=== PATIENT | male | born 1965 | race Caucasian/White ===

== ENCOUNTER → 2016-07-10 | Outpatient (CLI) | payer OTHER | END | disposition home or self-care (01) | LOC: RADMRIMAIN 19:12 | PROVIDERS: ATTEND Nurse Practitioner Family | DX: Z53.9 Procedure and treatment not carried out, unspecified reason (principal) ==

== ENCOUNTER 2017-10-22 05:56 | Emergency (ER) | payer OTHER ==
[2017-10-22 06:02] VITALS: TEMP 98.3
[2017-10-22] MEDS ORDERED: SODIUM CHLORIDE 0.9% 500 ML IV STA (06:19)
--- NOTE | 2017-10-22 06:33 | ED ---
Abdominal Pain HPI - General Source: patient Mode of arrival: ambulatory Limitations: no limitations - History of Present Illness MD Complaint: flank pain Onset/Timin -: hour(s) Location: LLQ, L flank Radiation: none Migration to: no migration Severity: moderate Quality: dull Consistency: constant Improves With: nothing Worsens With: nothing Associated Symptoms: denies other symptoms <Vasile Teague - Last Filed: 10/22/17 06:32> <Abhi Burns - Last Filed: 10/22/17 08:15> - General Chief Complaint: Abdominal Pain Stated Complaint: back/abd pain Time Seen by Provider: 10/22/17 06:04 - Related Data Home Medications Medication Instructions Recorded Confirmed Fenofibrate (Unknown Dose) 1 tab PO HS 10/22/17 10/22/17 Lisinopril [Zestril] 10 mg PO DAILY 10/22/17 10/22/17 metFORMIN HCL [Glucophage] 500 mg PO BID 10/22/17 10/22/17 Previous Rx's Medication Instructions Recorded Ketorolac [Toradol] 10 mg PO Q6HR PRN #15 tab 10/22/17 Tamsulosin [Flomax] 0.4 mg PO DAILY #14 cap 10/22/17 Allergies Allergy/AdvReac Type Severity Reaction Status Date / Time No Known Allergies Allergy Verified 10/22/17 06:02 Review of Systems ROS Other: All systems not noted in ROS Statement are negative. Constitutional: Denies: fever, chills Respiratory: Denies: cough, dyspnea Cardiovascular: Denies: chest pain, palpitations, edema Gastrointestinal: Reports: as per HPI, abdominal pain. Denies: nausea, vomiting , diarrhea, constipation, melena, hematochezia Genitourinary: Denies: dysuria, hematuria, testicular pain, testicular mass Musculoskeletal: Denies: back pain Skin: Denies: rash Neurological: Denies: headache <Vasile Teague - Last Filed: 10/22/17 06:32> ROS Other: All systems not noted in ROS Statement are negative. <Abhi Burns - Last Filed: 10/22/17 08:15> ROS Statement: Those systems with pertinent positive or pertinent negative responses have been documented in the HPI. Past Medical History Past Medical History: No Reported History History of Any Multi-Drug Resistant Organisms: None Reported Past Surgical History: No Surgical Hx Reported Past Psychological History: No Psychological Hx Reported Smoking Status: Never smoker Past Alcohol Use History: Occasional Past Drug Use History: None Reported <ZahidaVasile - Last Filed: 10/22/17 06:32> General Exam Limitations: no limitations General appearance: alert, in no apparent distress Head exam: Present: atraumatic, normocephalic Eye exam: Present: normal appearance. Absent: scleral icterus, conjunctival injection Respiratory exam: Present: normal lung sounds bilaterally. Absent: respiratory distress, wheezes, rales, rhonchi, stridor Cardiovascular Exam: Present: regular rate, normal rhythm, normal heart sounds. Absent: systolic murmur, diastolic murmur, rubs, gallop GI/Abdominal exam: Present: soft. Absent: distended, tenderness, guarding, rebound, rigid, mass, pulsatile mass, hernia Extremities exam: Present: normal inspection, normal capillary refill. Absent: pedal edema, calf tenderness Back exam: Present: normal inspection, full ROM, CVA tenderness (L). Absent: CVA tenderness (R) Neurological exam: Present: alert Skin exam: Present: warm, dry, intact, normal color. Absent: rash <Vasile Teague - Last Filed: 10/22/17 06:32> Vital Signs 10/22/17 05:59 Temperature 98.3 F Pulse Rate 72 Respiratory 18 Rate Blood Pressure 138/89 O2 Sat by Pulse 100 Oximetry Medical Decision Making <Vasile Teague - Last Filed: 10/22/17 06:32> - Lab Data Result diagrams: 10/22/17 06:21 10/22/17 06:21 - Radiology Data Radiology results: report reviewed (Unable to view the images. Radiologist reports KUB as no acute process. Computed tomography scan showing left 7 mm proximal ureter calculi.) <Abhi Burns - Last Filed: 10/22/17 08:15> - Medical Decision Making Patient reevaluated by myself, Dr. Burns. Patient reevaluated and resting comfortably in bed. Abdomen soft and nontender. Patient and family updated on results and need for follow-up. (Abhi Burns) - Lab Data Lab Results 10/22/17 10/22/17 10/22/17 Range/Units 06:21 06:21 06:21 WBC 9.7 (3.8-10.6) k/uL RBC 4.54 (4.30-5.90) m/uL Hgb 14.7 (13.0-17.5) gm/dL Hct 42.0 (39.0-53.0) % MCV 92.6 (80.0-100.0) fL MCH 32.3 (25.0-35.0) pg MCHC 34.9 (31.0-37.0) g/dL RDW 12.4 (11.5-15.5) % Plt Count 253 (150-450) k/uL Neutrophils % 75 % Lymphocytes % 17 % Monocytes % 5 % Eosinophils % 1 % Basophils % 0 % Neutrophils # 7.3 (1.3-7.7) k/uL Lymphocytes # 1.7 (1.0-4.8) k/uL Monocytes # 0.5 (0-1.0) k/uL Eosinophils # 0.1 (0-0.7) k/uL Basophils # 0.0 (0-0.2) k/uL Sodium 136 L (137-145) mmol/L Potassium 5.0 (3.5-5.1) mmol/L Chloride 104 (98-107) mmol/L Carbon Dioxide 22 (22-30) mmol/L Anion Gap 10 mmol/L BUN 22 H (9-20) mg/dL Creatinine 1.50 H (0.66-1.25) mg/dL Est GFR (CKD-EPI)AfAm 61 (>60 ml/min/1.73 sqM) Est GFR (CKD-EPI)NonAf 53 (>60 ml/min/1.73 sqM) Glucose 168 H (74-99) mg/dL Calcium 10.3 H (8.4-10.2) mg/dL Total Bilirubin 0.5 (0.2-1.3) mg/dL AST 31 (17-59) U/L ALT 44 (21-72) U/L Alkaline Phosphatase 65 (38-126) U/L Total Protein 7.0 (6.3-8.2) g/dL Albumin 4.6 (3.5-5.0) g/dL Amylase 58 (30-110) U/L Lipase 96 (23-300) U/L Urine Color Light Yellow Urine Appearance Cloudy (Clear) Urine pH 6.5 (5.0-8.0) Ur Specific [place] 1.013 (1.001-1.035) Urine Protein Negative (Negative) Urine Glucose (UA) 3+ H (Negative) Urine Ketones Negative (Negative) Urine Blood Small H (Negative) Urine Nitrite Negative (Negative) Urine Bilirubin Negative (Negative) Urine Urobilinogen <2.0 (<2.0) mg/dL Ur Leukocyte Esterase Negative (Negative) Urine RBC 31 H (0-5) /hpf Urine WBC 2 (0-5) /hpf Urine Mucus Rare H (None) /hpf Disposition <Vasile Teague - Last Filed: 10/22/17 06:32> Is patient prescribed a controlled substance at d/c from ED?: No Time of Disposition: 08:15 <Abhi Burns - Last Filed: 10/22/17 08:15> Clinical Impression: Ureterolithiasis Disposition: HOME SELF-CARE Condition: Stable Instructions: Kidney Stones (ED) Additional Instructions: Please follow-up with primary care physician in the next couple days for recheck. Please also follow-up with urology. Return for increased pain, fevers , uncontrolled vomiting, worsening symptoms or other concerns. Prescriptions: Ketorolac [Toradol] 10 mg PO Q6HR PRN #15 tab PRN Reason: Pain Tamsulosin [Flomax] 0.4 mg PO DAILY #14 cap Referrals: Taina Johnson DO [Primary Care Provider] - 1-2 days
[2017-10-22 06:49] LABS: Basophils % (A) 0 %; Eosinophils # (A) 0.1 k/uL (0-0.7); Eosinophils % (A) 1 %; HGB 14.7 gm/dL (13.0-17.5); Lymphocytes # (A) 1.7 k/uL (1.0-4.8); Lymphocytes % (A) 17 %; MCH 32.3 pg (25.0-35.0); MCHC 34.9 g/dL (31.0-37.0); MCV 92.6 fL (80.0-100.0); Mean Platelet Volume 6.4; Monocytes # (A) 0.5 k/uL (0-1.0); Monocytes % (A) 5 %; Neutrophils # (A) 7.3 k/uL (1.3-7.7); Neutrophils % (A) 75 %; Platelet Count 253 k/uL (150-450); RBC 4.54 m/uL (4.30-5.90); RDW 12.4 % (11.5-15.5); WBC 9.7 k/uL (3.8-10.6)
--- NOTE | 2017-10-22 06:51 | XR ---
EXAM: XR Abdomen, 1 View CLINICAL HISTORY: ITS.REASON XR Reason: abdominal pain TECHNIQUE: Frontal supine view of the abdomen/pelvis. COMPARISON: No relevant prior studies available. FINDINGS: Gastrointestinal tract: Unremarkable. No dilation. Bones/joints: Unremarkable. IMPRESSION: Normal abdominal x-ray.
[2017-10-22 06:57] LABS: Appearance,Urine Cloudy (Clear); Bilirubin,Urine Negative (Negative); Blood,Urine Small (Negative); Color,Urine Light Yellow; Glucose,Urine (UA) 3+ (Negative); Ketones,Urine Negative (Negative); Leukocyte Esterase,Urine Negative (Negative); Mucus,Urine Rare /hpf; Nitrite,Urine Negative (Negative); PH, Urine 6.5 (5.0-8.0); Protein,Urine Negative (Negative); RBC,Urine 31 /hpf (0-5); Specific Gravity,Urine 1.013 (1.001-1.035); Urobilinogen,Urine <2.0 mg/dL (<2.0); WBC,Urine 2 /hpf (0-5)
[2017-10-22 07:00] LABS: Albumin 4.6 g/dL (3.5-5.0); Calcium 10.3 mg/dL (8.4-10.2); Total Bilirubin 0.5 mg/dL (0.2-1.3)
--- NOTE | 2017-10-22 08:02 | CT ---
EXAMINATION TYPE: CT abdomen pelvis wo con DATE OF EXAM: 10/22/2017 HISTORY: Left sided flank pain and difficulty urinating CT DLP: 1225.9 mGycm. Automated Exposure Control for Dose Reduction was Utilized. TECHNIQUE: CT scan of the abdomen and pelvis is performed without oral or IV contrast. COMPARISON: Same day abdominal x-ray FINDINGS: Within the limitations of a non-contrast study, the following observations are made. LUNG BASES: No significant abnormality is appreciated. LIVER/GB: Liver is diffusely low dense consistent with fatty infiltration. PANCREAS: No significant abnormality is seen. SPLEEN: No significant abnormality is seen. ADRENALS: No significant abnormality is seen. KIDNEYS: There is 4 mm calculus anteriorly lower pole level right kidney. There is no hydronephrosis or obstructing ureter calculus on the right. No intraluminal calculus in the bladder is noted. There is 7 mm calculus in the proximal left ureter coronal image 60 and axial image 86 causing mild t o moderate left-sided pyelocaliectasis and proximal hydroureter. No additional left-sided renal calcu li are seen. There is mild perinephric and proximal ureter fat stranding presumed product of obstruct ing calculus, renal infection should be excluded clinically. BOWEL: A few diverticula are seen in the sigmoid and left colon. There is no suspicious small or larg e bowel dilatation. There is normal-appearing appendix extending superiorly and medially from the cec um.. GENITAL ORGANS: Central zone calcifications are seen in normal size prostate gland. LYMPH NODES: No greater than 1cm abdominal or pelvic lymph nodes are appreciated. OSSEOUS STRUCTURES: There are bilateral pars defect L5 level. There is grade 1 anterolisthesis L5 on S1. There is moderate to advanced disc space narrowing L5-S1 level. There is moderate multilevel ante rior and lateral spurring in the visualized thoracic spine. OTHER: No significant additional abnormality is seen. IMPRESSION: 1. There is 7 mm calculus proximal left ureter causing mild to moderate left-sided hydronephrosis. Th ere is additional 4 mm nonobstructing calculus lower pole level right kidney. Neither are well seen o n x-ray earlier today. 2. Bilateral pars defects with spondylolisthesis and disc space narrowing lumbosacral junction.
[2017-10-22] MEDS ORDERED: KETOROLAC 30 MG/ML 1 ML VIAL IVP STA (08:15)
[2017-10-22 08:28] VITALS: BP 135/76; PULSE 70; RESP 16
== END 2017-10-22 08:30 | disposition home or self-care (01) ==
LOC: EC 05:56
DX: N20.1 Calculus of ureter (principal); Z79.84 Long term (current) use of oral hypoglycemic drugs; Z79.899 Other long term (current) drug therapy
CPT/HCPCS: 36415; 74018; 74176; 80053; 81001; 82150; 83690; 85025; 96361; 96374; 99284

== ENCOUNTER 2018-10-04 18:27 | Inpatient (IN) | payer BC, OTHER ==
[2018-10-04] MEDS ORDERED: SODIUM CHLORIDE 0.9% 1,000 ML IV STA (18:36)
[2018-10-04] MEDS ORDERED: ONDANSETRON 4 MG/2 ML VIAL IVP STA (18:50)
[2018-10-04] MEDS ORDERED: KETOROLAC 30 MG/ML 1 ML VIAL IVP STA (18:50)
[2018-10-04 19:08] LABS: Basophils % (A) 0 %; Eosinophils # (A) 0.1 k/uL (0-0.7); Eosinophils % (A) 1 %; HCT 35.8 % (39.0-53.0); Lymphocytes # (A) 2.2 k/uL (1.0-4.8); Lymphocytes % (A) 28 %; MCH 31.1 pg (25.0-35.0); MCHC 33.6 g/dL (31.0-37.0); MCV 92.4 fL (80.0-100.0); Mean Platelet Volume 6.8; Monocytes # (A) 0.5 k/uL (0-1.0); Monocytes % (A) 6 %; Neutrophils # (A) 4.9 k/uL (1.3-7.7); Neutrophils % (A) 63 %; Platelet Count 288 k/uL (150-450); RBC 3.87 m/uL (4.30-5.90); RDW 12.3 % (11.5-15.5); WBC 7.7 k/uL (3.8-10.6)
[2018-10-04 19:18] LABS: Albumin 4.5 g/dL (3.5-5.0); Calcium 10.1 mg/dL (8.4-10.2); Potassium 4.3 mmol/L (3.5-5.1); Total Bilirubin 0.5 mg/dL (0.2-1.3); Total Protein 7.1 g/dL (6.3-8.2)
--- NOTE | 2018-10-04 19:27 | ED ---
Abdominal Pain HPI <Vasile Teague - Last Filed: 10/04/18 22:54> - General Source: patient, RN notes reviewed Mode of arrival: ambulatory Limitations: no limitations <Laith Santiago - Last Filed: 10/04/18 23:04> - General Chief Complaint: Abdominal Pain Stated Complaint: poss kidney stones Time Seen by Provider: 10/04/18 18:35 - History of Present Illness Initial Comments: 53-year-old male presents emergency Department chief complaint left flank pain. Patient states started earlier today. Patient states he has had kidney stones in the past and states this feels very similar. Patient states she's had nausea and vomiting today he also complained that he's had decreased urine output. Denies any drinking or bowel habits no melena hematochezia denies any noticeable hematuria. Patient has fever, chills, chest pain, shortness breath. Patient has not taken anything for the pain. Patient states she was prescribed Toradol the past which helped. (Laith Santiago) - Related Data Home Medications Medication Instructions Recorded Confirmed Lisinopril [Zestril] 10 mg PO HS 10/22/17 10/04/18 Fenofibrate 160 mg PO HS 10/04/18 10/04/18 Ozempic (Unknown Dose SQ SA 10/04/18 Pravastatin Sodium 80 mg PO HS 10/04/18 10/04/18 Previous Rx's Medication Instructions Recorded Ketorolac [Toradol] 10 mg PO Q6HR PRN #15 tab 10/22/17 Allergies Allergy/AdvReac Type Severity Reaction Status Date / Time No Known Allergies Allergy Verified 10/04/18 18:47 Review of Systems ROS Other: All systems not noted in ROS Statement are negative. <Vasile Teague - Last Filed: 10/04/18 22:54> ROS Other: All systems not noted in ROS Statement are negative. <Laith Santiago - Last Filed: 10/04/18 23:04> ROS Statement: Those systems with pertinent positive or pertinent negative responses have been documented in the HPI. Past Medical History Past Medical History: No Reported History History of Any Multi-Drug Resistant Organisms: None Reported Past Surgical History: No Surgical Hx Reported Past Psychological History: No Psychological Hx Reported Smoking Status: Never smoker Past Alcohol Use History: Occasional Past Drug Use History: None Reported <Laith Santiago - Last Filed: 10/04/18 23:04> General Exam Limitations: no limitations General appearance: alert, in no apparent distress Head exam: Present: atraumatic, normocephalic, normal inspection Neck exam: Present: normal inspection, full ROM. Absent: tenderness, meni ngismus, lymphadenopathy Respiratory exam: Present: normal lung sounds bilaterally. Absent: respiratory distress, wheezes, rales, rhonchi, stridor Cardiovascular Exam: Present: regular rate, normal rhythm, normal heart sounds. Absent: systolic murmur, diastolic murmur, rubs, gallop, clicks GI/Abdominal exam: Present: soft, tenderness (Minimal left sided left flank), normal bowel sounds. Absent: distended, guarding, rebound, rigid Back exam: Present: CVA tenderness (L). Absent: CVA tenderness (R) Neurological exam: Present: alert, oriented X3, CN II-XII intact Skin exam: Present: warm, dry, intact, normal color. Absent: rash <Laith Santiago - Last Filed: 10/04/18 23:04> Course Vital Signs 10/04/18 18:32 Temperature 98.4 F Pulse Rate 72 Respiratory 18 Rate Blood Pressure 116/76 O2 Sat by Pulse 99 Oximetry Medical Decision Making - Lab Data Result diagrams: 10/04/18 18:50 10/04/18 18:50 <Vasile Teague - Last Filed: 10/04/18 22:54> - Lab Data Result diagrams: 10/04/18 18:50 10/04/18 18:50 <Laith Santiago - Last Filed: 10/04/18 23:04> - Medical Decision Making I saw this patient in conjunction with the physician assistant women's rowing coach. I performed independent history and physical exam. Agree with case management. Given the patient's elevated creatinine, will admit patient. I did attempt to reach the urologist on-call, or schedule had Dr. Ramírez listed. We phoned and he explained that he was not on-call, attempting to reach correct physician. (Vasile Teague) - Lab Data Lab Results 10/04/18 10/04/18 10/04/18 Range/Units 18:50 18:50 20:15 WBC 7.7 (3.8-10.6) k/uL RBC 3.87 L (4.30-5.90) m/uL Hgb 12.0 L (13.0-17.5) gm/dL Hct 35.8 L (39.0-53.0) % MCV 92.4 (80.0-100.0) fL MCH 31.1 (25.0-35.0) pg MCHC 33.6 (31.0-37.0) g/dL RDW 12.3 (11.5-15.5) % Plt Count 288 (150-450) k/uL Neutrophils % 63 % Lymphocytes % 28 % Monocytes % 6 % Eosinophils % 1 % Basophils % 0 % Neutrophils # 4.9 (1.3-7.7) k/uL Lymphocytes # 2.2 (1.0-4.8) k/uL Monocytes # 0.5 (0-1.0) k/uL Eosinophils # 0.1 (0-0.7) k/uL Basophils # 0.0 (0-0.2) k/uL Sodium 141 (137-145) mmol/L Potassium 4.3 (3.5-5.1) mmol/L Chloride 105 (98-107) mmol/L Carbon Dioxide 25 (22-30) mmol/L Anion Gap 11 mmol/L BUN 21 H (9-20) mg/dL Creatinine 2.14 H (0.66-1.25) mg/dL Est GFR (CKD-EPI)AfAm 40 (>60 ml/min/1.73 sqM) Est GFR (CKD-EPI)NonAf 34 (>60 ml/min/1.73 sqM) Glucose 187 H (74-99) mg/dL Calcium 10.1 (8.4-10.2) mg/dL Total Bilirubin 0.5 (0.2-1.3) mg/dL AST 27 (17-59) U/L ALT 37 (21-72) U/L Alkaline Phosphatase 51 (38-126) U/L Total Protein 7.1 (6.3-8.2) g/dL Albumin 4.5 (3.5-5.0) g/dL Amylase 49 (30-110) U/L Lipase 173 (23-300) U/L Urine Color Yellow Urine Appearance Clear (Clear) Urine pH 6.0 (5.0-8.0) Ur Specific [place] 1.025 (1.001-1.035) Urine Protein Trace H (Negative) Urine Glucose (UA) 3+ H (Negative) Urine Ketones Trace H (Negative) Urine Blood Trace H (Negative) Urine Nitrite Negative (Negative) Urine Bilirubin Negative (Negative) Urine Urobilinogen <2.0 (<2.0) mg/dL Ur Leukocyte Esterase Negative (Negative) Urine RBC 5 (0-5) /hpf Urine WBC 6 H (0-5) /hpf Ur Squamous Epith Cells <1 (0-4) /hpf Urine Mucus Rare H (None) /hpf Disposition <Vasile Teague - Last Filed: 10/04/18 22:54> <Laith Santiago - Last Filed: 10/04/18 23:04> Clinical Impression: Acute renal failure, Urethral calculus Disposition: ADMITTED IP TO THIS HOSP Condition: Fair Referrals: Taina Johnson DO [Primary Care Provider] - 1-2 days
--- NOTE | 2018-10-04 19:33 | XR ---
EXAMINATION TYPE: XR KUB DATE OF EXAM: 10/04/2018 COMPARISON: 10/22/2017 HISTORY: Flank pain TECHNIQUE: 2 views upright FINDINGS: There is no sign of intestinal obstruction or pneumoperitoneum. Fecal pattern is normal. Th ere are no pathologic calcifications over the kidneys. IMPRESSION: Nonacute abdomen. No change.
[2018-10-04 20:29] LABS: Appearance,Urine Clear (Clear); Bilirubin,Urine Negative (Negative); Blood,Urine Trace (Negative); Color,Urine Yellow; Glucose,Urine (UA) 3+ (Negative); Ketones,Urine Trace (Negative); Leukocyte Esterase,Urine Negative (Negative); Mucus,Urine Rare /hpf; Nitrite,Urine Negative (Negative); Protein,Urine Trace (Negative); RBC,Urine 5 /hpf (0-5); Specific Gravity,Urine 1.025 (1.001-1.035); Squamous Epithelial Cell,Urine <1 /hpf (0-4); Urobilinogen,Urine <2.0 mg/dL (<2.0)
--- NOTE | 2018-10-04 21:36 | CT ---
EXAMINATION TYPE: CT abdomen pelvis wo con DATE OF EXAM: 10/04/2018 COMPARISON: 10/22/2017 HISTORY: left flank pain CT DLP: 932.8 mGycm Automated exposure control for dose reduction was used. TECHNIQUE: Helical acquisition of images was performed from the lung bases through the pelvis. FINDINGS: There is interstitial density at the posterior lung bases. There is no pericardial effusion. There is no pleural effusion. There is fatty infiltration of the liver. Spleen appears normal. Stomach appears normal. Bile ducts a re not dilated. There is no pancreatic mass. Gallbladder appears normal. There is no adrenal mass. There is 7 mm calculus interpolar right kidney. There is moderate left-sided hydronephrosis and 8 mm calculus proximal left ureter. There is left-sided perinephric edema. There is no retroperitoneal erick nopathy. Bladder distends smoothly. There is no inguinal hernia. There is no free fluid in the pelvis. There i s no mesenteric edema. There is no ascites or free air. There is L5 spondylolysis. There are second-degree L5-S1 spondylolisthesis. Bony pelvis is intact. Th ere is minimal prosthetic calcification. There is no evidence of a bowel obstruction. Appendix is not seen. There is no sign of appendicitis. IMPRESSION: OBSTRUCTING CALCULUS PROXIMAL LEFT URETER WITH MODERATE HYDRONEPHROSIS AND PERINEPHRIC EDEMA. NONOBSTRUCTING CALCULUS INTERPOLAR RIGHT KIDNEY. Fatty infiltration of the liver. Left renal obstruction similar to old CT scan. It is not clear if this is the same calculus. Right renal calculus increased in size compared to old exam.
[2018-10-04] MEDS ORDERED: NALOXONE 0.4 MG/ML 1 ML VIAL IV PRN (23:04)
[2018-10-04] MEDS ORDERED: HYDROmorphone 0.5 MG/0.5 ML SYRINGE IVP PRN (23:04)
[2018-10-04] MEDS ORDERED: HYDROmorphone 1 MG/ML 1 ML SYRINGE IVP PRN (23:04)
[2018-10-04] MEDS ORDERED: ONDANSETRON 4 MG/2 ML VIAL IVP PRN (23:04)
[2018-10-04] MEDS: SODIUM CHLORIDE 0.9% 1,000 ML IV SCH (23:21)
--- NOTE | 2018-10-05 10:23 | CONS ---
CONSULTATION REASON FOR CONSULT: Renal failure. HISTORY OF PRESENT ILLNESS: The patient is a 53-year-old male with a prior history of nephrolithiasis, was admitted to the hospital with severe left-sided flank pain radiating to the front. He did not have any significant urinary symptoms. The patient states that his creatinine was elevated as outpatient and recently his metformin was discontinued. He is not aware of the exact levels. Serum creatinine on this admission was 2.14 mg/dL. Review of previous labs shows a creatinine of 1.4 on 06/09/2018 and 1.2 on 03/04/2018. The patient denies use of any nonsteroidal anti-inflammatory agents prior to admission. He had been getting Toradol while he was here and he is maintained on Zestril as outpatient. CAT scan done on admission shows nonobstructive calculus in the right kidney and obstructive calculus in the left ureter with moderate hydronephrosis and perinephric edema. There is a 7 mm calculus noted in the right kidney. The patient currently feels well. He denies any urinary symptoms. His pain is controlled. He is maintained on IV fluids. PAST MEDICAL HISTORY: Hypertension, type 2 diabetes. PAST SURGICAL HISTORY: None. SOCIAL HISTORY: Negative for smoking, drug abuse or alcohol abuse. MEDICATIONS: Medications prior to admission included Zestril, pravastatin, fenofibrate, Ozempic. ALLERGIES: None. REVIEW OF SYSTEMS: As per HPI. Other systems negative. PHYSICAL EXAMINATION: On examination, patient is comfortable, awake, alert, oriented x3, not in any acute distress. Blood pressure was 114/71, heart rate 57 per minute. He is afebrile. EXAMINATION OF THE HEART: S1 and S2. EXAMINATION OF THE LUNGS: Bilateral breath sounds are heard. Abdomen is soft, nontender. Examination of lower extremities shows no significant edema. DOUBLE CUT OFF SAW OPERATOR exam is grossly intact. LABS: Labs show sodium 141, potassium 4.3, BUN 21, serum creatinine 2.14, hemoglobin 12.0. UA shows 3+ glucose, blood trace, WBC 6 and there is trace protein. ASSESSMENT: 1. Acute kidney injury. Prerenal as well as an element of obstructive uropathy with left hydronephrosis noted on CAT scan with a ureteral stone. Currently nonoliguric. Continue with the IV hydration. Repeat labs today and continue to hold off on the MORELIA inhibitors and avoid Toradol and all kinds of nonsteroidal anti- inflammatory agents. 2. Rule out chronic kidney disease. Previous creatinine was 1.2 and 1.4 mg/dL in February of 2018 and June of 2018. The etiology is likely diabetic nephropathy versus nephrosclerosis. We will need to repeat another urinalysis down the road. 3. Left hydronephrosis with left ureteral stone. 4. Hypertension. Blood pressure currently controlled. Continue off of MORELIA inhibitors for now. 5. Dyslipidemia, maintained on fenofibrate and statins. PLAN: Continue IV fluids. Repeat labs in a.m. Hold off on MORELIA inhibitors. Avoid Toradol and all nonsteroidal anti-inflammatory agents. Consult Urology. Thank you for this consultation. We will continue to follow the patient with you during his hospitalization. MMODL / IJN: [id number] /
[2018-10-05 12:24] VITALS: BP 123/76; PULSE 54; RESP 16; TEMP 97.9
--- NOTE | 2018-10-05 16:43 | P.GSCN ---
History of Present Illness Consult date: 10/05/18 History of present illness: The patient is a pleasant 53-year-old gentleman who 24 hours ago developed significant left-sided flank pain. He was known to have kidney stones and a year ago had a left ureter serious left ureteral colic. He never passed a stone that he can recall. He is told that point in time he had 2 stones up. He presented yesterday and was found to have a 7 mm proximal ureteral stone on the left side. He is admitted for IV fluids and pain control. The pain is better by the time I'm seeing the patient this afternoon. The only other stone that he had was the ureter go. He states that he did not pass it. He has not had any x-rays in the in between. He will get occasional back pain on the left side. A CAT scan done today showed the 7 mm proximal ureteral stone and a 5-6 mm right renal pelvic stone. This is very similar to last year. The amount of hydronephrosis on the left side is moderate. There is no family history of stones. There is no history urine infection. He is not nauseated. There is no gross hematuria. There's no fever or chills. Past Medical History Past Medical History: No Reported History, Diabetes Mellitus, Hyperlipidemia, Hypertension Additional Past Medical History / Comment(s): kidney stones History of Any Multi-Drug Resistant Organisms: None Reported Past Surgical History: No Surgical Hx Reported Past Psychological History: No Psychological Hx Reported Smoking Status: Never smoker Past Alcohol Use History: Occasional Past Drug Use History: None Reported - Past Family History Mother Family Medical History: No Reported History Medications and Allergies Home Medications Medication Instructions Recorded Confirmed Type Ketorolac [Toradol] 10 mg PO Q6HR PRN #15 tab 10/22/17 10/04/18 Rx Lisinopril [Zestril] 10 mg PO HS 10/22/17 10/04/18 History Fenofibrate 160 mg PO HS 10/04/18 10/04/18 History Ozempic (Unknown Dose SQ SA 10/04/18 History Pravastatin Sodium 80 mg PO HS 10/04/18 10/04/18 History Allergies Allergy/AdvReac Type Severity Reaction Status Date / Time No Known Allergies Allergy Verified 10/04/18 18:47 Surgical - Exam Vital Signs Temp Pulse Resp BP Pulse Ox 98.4 F 72 18 116/76 99 07/02/19 18:32 10/04/18 18:32 10/04/18 18:32 10/04/18 18:32 10/04/18 18:32 - General well developed, well nourished, no distress - Eyes PERRL - ENT no hearing loss - Neck no masses - Respiratory normal expansion, normal respiratory effort - Cardiovascular Rhythm: regular - Abdomen Abdomen: soft, non tender - Integumentary no rash, no growths - Neurologic normal coordination, normal sensation - Musculoskeletal normal gait, normal posture - Psychiatric oriented to time, oriented to person, oriented to place, speech is normal, memory intact Results - Labs 10/04/18 18:50 10/04/18 18:50 Abnormal Lab Results - Last 24 Hours (Table) 10/04/18 10/04/18 10/04/18 Range/Units 18:50 18:50 20:15 RBC 3.87 L (4.30-5.90) m/uL Hgb 12.0 L (13.0-17.5) gm/dL Hct 35.8 L (39.0-53.0) % BUN 21 H (9-20) mg/dL Creatinine 2.14 H (0.66-1.25) mg/dL Glucose 187 H (74-99) mg/dL Urine Protein Trace H (Negative) Urine Glucose (UA) 3+ H (Negative) Urine Ketones Trace H (Negative) Urine Blood Trace H (Negative) Urine WBC 6 H (0-5) /hpf Urine Mucus Rare H (None) /hpf Diabetes panel 10/04/18 Range/Units 18:50 Sodium 141 (137-145) mmol/L Potassium 4.3 (3.5-5.1) mmol/L Chloride 105 (98-107) mmol/L Carbon Dioxide 25 (22-30) mmol/L BUN 21 H (9-20) mg/dL Creatinine 2.14 H (0.66-1.25) mg/dL Glucose 187 H (74-99) mg/dL Calcium 10.1 (8.4-10.2) mg/dL AST 27 (17-59) U/L ALT 37 (21-72) U/L Alkaline Phosphatase 51 (38-126) U/L Total Protein 7.1 (6.3-8.2) g/dL Albumin 4.5 (3.5-5.0) g/dL Calcium panel 10/04/18 Range/Units 18:50 Calcium 10.1 (8.4-10.2) mg/dL Albumin 4.5 (3.5-5.0) g/dL Pituitary panel 10/04/18 Range/Units 18:50 Sodium 141 (137-145) mmol/L Potassium 4.3 (3.5-5.1) mmol/L Chloride 105 (98-107) mmol/L Carbon Dioxide 25 (22-30) mmol/L BUN 21 H (9-20) mg/dL Creatinine 2.14 H (0.66-1.25) mg/dL Glucose 187 H (74-99) mg/dL Calcium 10.1 (8.4-10.2) mg/dL Adrenal panel 10/04/18 Range/Units 18:50 Sodium 141 (137-145) mmol/L Potassium 4.3 (3.5-5.1) mmol/L Chloride 105 (98-107) mmol/L Carbon Dioxide 25 (22-30) mmol/L BUN 21 H (9-20) mg/dL Creatinine 2.14 H (0.66-1.25) mg/dL Glucose 187 H (74-99) mg/dL Calcium 10.1 (8.4-10.2) mg/dL Total Bilirubin 0.5 (0.2-1.3) mg/dL AST 27 (17-59) U/L ALT 37 (21-72) U/L Alkaline Phosphatase 51 (38-126) U/L Total Protein 7.1 (6.3-8.2) g/dL Albumin 4.5 (3.5-5.0) g/dL - Imaging Abdominal x-ray: report reviewed, image reviewed CT scan - abdomen: report reviewed, image reviewed CT scan - pelvis: report reviewed, image reviewed Assessment and Plan Assessment: Impression: Left ureteral calculus with colic. Right renal stone. Recommendations: The patient is comfortable. We discussed the pros and cons of surgical intervention. He would like to try to pass this if possible. He sh ould go home with a prescription of Flomax and pain medicine. I would like to see him in the office again in a week. We did discuss shockwave lithotripsy and ureteroscopic manipulation if he does not pass it. Given that he has had this stone with intermittent colic over the last year I think good be reasonable to do something if he does not get rid of it over the next week or so.
[2018-10-05] MEDS: SODIUM CHLORIDE 0.9% 1,000 ML IV SCH (17:55)
--- NOTE | 2018-10-06 08:43 | HP ---
HISTORY AND PHYSICAL HISTORY AND PHYSICAL/DISCHARGE SUMMARY: This is a combination history and physical/discharge summary. CHIEF COMPLAINTS: Renal failure and as well as abdominal pain. HISTORY OF PRESENT ILLNESS: This 53-year-old gentleman with a past medical history of multiple medical problems including diabetes, hypertension, hyperlipidemia, being followed by Dr. Johnson in the outpatient setting is complaining of abdominal pain which is felt status left flank pain. The patient also had kidney stones in the past. The patient had some nausea. Patient reported some diminished urine output. Patient came to [facility] and admitted for further evaluation and treatment. The creatinine was found to be elevated to 2.14. The UA was noted and the patient also had abdomen/pelvis CAT scan which showed obstructing calculus, proximal left ureter with moderate hydronephrosis and perinephric edema on the left side and nonobstructing calculus on the right kidney also noted. The patient was evaluated by nephrology and Neurology, who recommended outpatient followups, so the patient being discharged in a stable condition with guarded prognosis at this time. Patient apparently would like to try to pass by itself if possible. Flomax has been given. There is no history of fever, rigors or chills. PAST MEDICAL HISTORY: Diabetes, hypertension, hyperlipidemia, kidney stones. MEDICATIONS: Home medications are reviewed and include: 2. Zestril 160 mg daily. 3. Fenofibrate 160 mg daily. 4. Tylenol p.r.n. ALLERGIES: None. FAMILY HISTORY: No history of heart disease or strokes in the family. SOCIAL HISTORY: No history of smoking. No history of alcohol. REVIEW OF SYSTEMS: ENT: No diminished vision. No diminished hearing. CARDIOVASCULAR: No angina of palpitations. RESPIRATIONS: As mentioned earlier. GI: As mentioned earlier. as mentioned earlier. NERVOUS SYSTEM: No numbness or weakness. ALLERGY/IMMUNOLOGY: No asthma or hayfever. MUSCULOSKELETAL as mentioned earlier. HEMATOLOGY/ONCOLOGY: No history of anemia. ENDOCRINE: No history of diabetes or hypothyroidism. CONSTITUTIONAL: As mentioned earlier. DERMATOLOGY: Negative. RHEUMATOLOGY: Negative. PSYCHIATRY: As mentioned earlier. PHYSICAL EXAMINATION: The patient is alert and oriented x3. Pulse is 54, blood pressure 140/70, respiration 18, temperature 97.7, pulse ox 98% on room air. HEENT: Conjunctivae normal. NECK: No jugular venous distention. CARDIOVASCULAR: S1, S2 muffled. RESPIRATORY: Breath sounds diminished in the bases. No rhonchi. No crackles. ABDOMEN: Soft, nontender. No mass palpable. LEGS: No edema. No swelling. NERVOUS SYSTEM as mentioned earlier. Moves all four limbs. No focal deficits. LYMPHATICS: No lymph nodes palpable in the neck, axillae or groin. SKIN: No ulcer, no rashes and no bleeding. JOINTS: No active deforming arthropathy. LABS: WBC 7.7, hemoglobin is 12, sodium 140, potassium 4.3, creatinine is 2.14. ASSESSMENT: 1. Possible acute renal failure with prerenal renal failure as well as obstructive uropathy. 2. Obstructing calculus proximal left ureter with moderate hydronephrosis and perinephric edema. 3. Anemia, normocytic anemia of chronic disease, possibly. 4. Hyperlipidemia. 5. Hypertension. 6. Diabetes mellitus type 2. 7. History of nephrolithiasis. RECOMMENDATIONS AND DISCUSSION: In this 53-year-old gentleman who presented with multiple medical issues, at this time, I recommend to continue current medications. As mentioned earlier, the patient is willing to try to pass urine by himself and follow up closely with Urology and Nephrology. DISCHARGE ADVICE AND MEDICATIONS: The patient being discharged in stable condition with guarded prognosis with the following advice and medications: 1. Follow up with Dr. Johnson in 2-3 days. 2. Follow up with Dr. Berger and Dr. Ramírez/Urology as advised. DISCHARGE MEDICATIONS: 1. Fenofibrate 160 mg q.h.s. 2. Pravastatin 80 mg q.h.s. 3. Zestril 10 mg q.h.s. 4. Flomax 0.4 daily. 5. [place] 5 mg q.6h q.4h p.r.n. 6. Tylenol p.r.n. MMODL / IJN: [id number] / MTDD
== END 2018-10-05 18:41 | disposition home or self-care (01) | DRG 684 ==
LOC: EC 18:27 → 3NMEDONC 10-05 00:21
PROVIDERS: ADMIT Hospitalist; ATTEND Hospitalist
DX: N17.9 Acute kidney failure, unspecified (principal); D63.8 Anemia in other chronic diseases classified elsewhere; E11.9 Type 2 diabetes mellitus without complications; E78.5 Hyperlipidemia, unspecified; I10 Essential (primary) hypertension; N13.2 Hydronephrosis with renal and ureteral calculous obstruction; N21.1 Calculus in urethra; Z87.442 Personal history of urinary calculi; Z79.899 Other long term (current) drug therapy
CPT/HCPCS: 36415; 74018; 74176; 80053; 81001; 82150; 83690; 85025; 96361; 96374; 96375; 99285

== ENCOUNTER → 2018-10-20 | Outpatient (CLI) | payer BC ==
--- NOTE | 2018-10-20 13:04 | XR ---
KUB HISTORY: An 28.1, N 20.0 Frontal KUB and 2 images correlated prior exam and CT and KUB 10/04/2017 There is no significant interval change. Calcification at the left L4 transverse process is again not ed measuring approximately 8 mm in size. No other significant interval change. Calcification seen in the region of the right renal pelvis on prior CT may migrated into the right ureter at the level of t he right L2 transverse process measuring approximately 6 mm. IMPRESSION: Left ureteral calculus. Possible interval migration of right renal calculus into the righ t ureter
== END | disposition home or self-care (01) ==
LOC: RADXRMAIN 10:31
PROVIDERS: ATTEND Urology
DX: N20.1 Calculus of ureter (principal)
CPT/HCPCS: 74018

== ENCOUNTER → 2019-02-01 | Day surgery (SDC) | payer BC ==
[2019-01-30 15:53] VITALS: BMI 33.5
--- NOTE | 2019-01-31 21:11 | P.GSHP ---
History of Present Illness H&P Date: 01/31/19 53 yo male was originally seen in october for a 7 mm mid left ureteral stone and a 5 mm right renal stone He chose eswl left The stone fractured into two pieces but didnt pass By a recent kub the stone appears to have remained in the mid ureter HE wants these removed He thus comes for ureterosco and laser lithotripsy left THe kub also suggests that the renal stone on the right may have also dropped into the mid ureter He will also undergo a right retrograde pyelogram wth possible right ureteroscopy and laser lithotripsy He may require stents in either ureter He understands this. - Constitutional Constitutional: Denies chills, Denies fever - EENT Eyes: denies blurred vision, denies pain Ears, nose, mouth and throat: Denies headache, Denies sore throat - Cardiovascular Cardiovascular: Denies chest pain, Denies shortness of breath - Respiratory Respiratory: Denies cough, Denies 7 - Gastrointestinal Gastrointestinal: Denies abdominal pain, Denies diarrhea, Denies nausea, Denies vomiting - Genitourinary (Female) Genitourinary: Denies dysuria, Denies hematuria - Genitourinary (Male) Genitourinary: Denies dysuria, Denies hematuria - Musculoskeletal Musculoskeletal: Denies myalgias - Integumentary Integumentary: Denies pruritus, Denies rash - Neurological Neurological: Denies numbness, Denies weakness - Psychiatric Psychiatric: Denies anxiety, Denies depression - Endocrine Endocrine: Denies fatigue, Denies weight change Past Medical History Past Medical History: Diabetes Mellitus, Hyperlipidemia, Hypertension Additional Past Medical History / Comment(s): kidney stones, taken off metformin and ran out of ozempic-states watching diet. History of Any Multi-Drug Resistant Organisms: None Reported Past Surgical History: No Surgical Hx Reported Additional Past Surgical History / Comment(s): LITHOTRIPSY Past Anesthesia/Blood Transfusion Reactions: No Reported Reaction Past Psychological History: No Psychological Hx Reported Smoking Status: Never smoker Past Alcohol Use History: Occasional Past Drug Use History: None Reported - Past Family History Mother Family Medical History: No Reported History Father Family Medical History: Cancer Additional Family Medical History / Comment(s): kidney cancer Medications and Allergies Home Medications Medication Instructions Recorded Confirmed Type Lisinopril [Zestril] 10 mg PO HS 10/22/17 01/30/19 History Fenofibrate 160 mg PO HS 10/04/18 01/30/19 History Pravastatin Sodium 80 mg PO HS 10/04/18 01/30/19 History Semaglutide [Ozempic] 0.25 mg SQ WEEKLY 01/30/19 01/30/19 History Tamsulosin HCl [Flomax] 0.4 mg PO HS 01/30/19 01/30/19 History Allergies Allergy/AdvReac Type Severity Reaction Status Date / Time No Known Allergies Allergy Verified 01/30/19 15:28 Surgical - Exam - General well developed, well nourished, no distress - Eyes PERRL - ENT no hearing loss - Neck trachea midline - Respiratory normal expansion, normal respiratory effort - Cardiovascular Rhythm: regular - Abdomen Abdomen: soft, non tender - Genitourinary normal penis with no external lesions, testicles present - Integumentary no rash, no growths - Neurologic normal coordination, normal sensation - Musculoskeletal normal gait, normal posture - Psychiatric oriented to time, oriented to person, oriented to place, speech is normal, memory intact Assessment and Plan Assessment: Impression: Left ureteral calculi and possible right ureteral calculous Plan: Cysto with left ureteroscopy and laser lithotripsy, right retrograde pyelogram with possible ureteroscopy and laser lithotripsy
[~2019-02-01] MED LIST: DEXAMETHASONE SOD PHOSPHATE 10 MG/ML 1 ML VIAL IV ONE; HYDROmorphone (PF) 1 MG/ML ONE; HYDROmorphone 0.5 MG/0.5 ML SYRINGE IVP PRN; INSULIN ASPART (NovoLOG) 100 UNIT/ML VIAL SQ ONE; IOHEXOL 350 MG/ML 50 ML in EMPTY BAG 1 BAG IRRIGATION ONE; LACTATED RINGERS 1,000 ML IV ONE; LACTATED RINGERS 1,000 ML IV SCH; LIDOCAINE 1% 20 ML VIAL (10MG/ML) FOR IV START INTRADERMA PRN; LIDOCAINE 1% INJ 10MG/ML (20 ML MDV) ONE; MIDAZOLAM 2 MG/2 ML VIAL ONE; ONDANSETRON 4 MG/2 ML VIAL IVP ONE; PHENYLEPHRINE-0.9% NACL SYG 1 MG/10 ML SYRINGE ONE; PROPOFOL 10 MG/ML 20 ML VIAL IV ONE; SCOPOLAMINE 1.5MG/72HR PATCH TRANSDERM ONE; TAMSULOSIN 0.4 MG CAP.ER.24H PO ONE; TAMSULOSIN 0.4 MG CAP.ER.24H PO STA; ePHEDrine SULFATE/0.9% NACL/PF 50 MG/5 ML SYRINGE IV ONE; fentaNYL (PF) 50 MCG/ML 2 ML AMP ONE
--- NOTE | 2019-02-01 09:40 | XR ---
EXAMINATION TYPE: XR KUB DATE OF EXAM: 02/01/2019 COMPARISON: 10/20/2018 HISTORY: Post lithotripsy TECHNIQUE: One view abdominal series FINDINGS: The osseous structures are intact. The bowel gas pattern is nonspecific. Hypertrophic changes of the acetabulum can be associated with femoral acetabular impingement. The previous noted calcification overlying the left transverse process of L3 is now seen overlying th e upper margin of the left transverse process of L4. Appears be fragmented into 2 pieces measuring di ameter of approximately 3 mm. IMPRESSION: 1. There is fragmentation of the mid left ureteral calculus into 2 pieces measuring a diameter of 3 m m or less. There is also distal migration of the 2 calcifications by approximately one vertebral segm ent length.
[2019-02-01 10:24] LABS: Glucose,Whole Blood 232 mg/dL (75-99)
--- NOTE | 2019-02-01 12:35 | P.OP ---
Date of Procedure: 02/01/19 Preoperative Diagnosis: Left ureteral calculus Postoperative Diagnosis: Bilateral ureteral calculi Procedure(s) Performed: Cystoscopy, right retrograde pyelogram, right ureteroscopy with laser lithotripsy and stone basketing, 6 x 26 stent, left ureteroscopy laser lithotripsy, 6 x 26 stent Anesthesia: BUTCH Surgeon: Jules Ramírez Estimated Blood Loss (ml): 10 Pathology: other (Stone) Condition: stable Disposition: PACU Indications for Procedure: The patient is 53. He had a large upper ureteral stone on the left. He underwent shockwave lithotripsy and the stone broke into 2 and lodged in the mid ureter. It is not been able to pass and has intermittent colic. I did a KUB in preparation in that there appears to be that the right renal stone was passed in the ureter. He comes for cystoscopy right retrograde pyelogram left ureteroscopy laser lithotripsy and possible right ureteroscopy and laser lithotripsy Description of Procedure: Patient brought the operating suite given general anesthesia placed lithotomy position with a sterile prep and drape. Cystoscopy Foroblique lens and 22- Chinese sheath identifies normal urethra. The prostate is not obstructing. Both ureteral orifices are normal. A right retrograde pyelogram with an 8 cone-tip catheters identified and there is a mid ureteral stone about 6-7 mm. Right ureteral wire is passed up into the kidney. Over the wires passed a 24-16-Ahsboy reentry sheath. The inner sheath is removed. Through the 13- Chinese sheath the stone was identified and fractured into tiny pieces with the 200 laser probe and 4 a lot of energy. The larger fragments are basketed. I then pass and 035 wire through the sheath. The sheath is removed. The wires backloaded on the cystoscope. Over the wires passed a 6 x 26 double-J catheter that coils in the kidney and the bladder I then pass the 035 wire through the left ureter. Over the wire and 85-00-Xiieuo reentry sheath was passed into the ureter. The inner sheath is removed. I then pass a flexible ureteroscope up to the stone. The most distal stone was fractured with the laser lithotripsy using 4 W of energy. The stone fragments are basketed. I then go to the proximal stone migrated into the kidney but I'm able to break it into smaller fragments and basket them. At the end of the procedure the ureteroscope was removed. An 035 wires passed up into the kidney. The reentry sheath is removed. The wires backloaded on the cysto scope. Over the wires 6 x 26 double-J catheters passed the coils in the renal pelvis and the bladder is drained. The patient's awake and returned recovery in good condition. The stone fragments are sent to pathology. The patient we discharged home upon recovery.
[2019-02-01 12:36] VITALS: TEMP 96.8
--- NOTE | 2019-02-01 13:28 | FL ---
EXAMINATION TYPE: FL urography retrograde DATE OF EXAM: 02/01/2019 COMPARISON: NONE HISTORY: Fluoroscopy TECHNIQUE: Fluoroscopy. FINDINGS: Fluoroscopic guidance was provided during procedure of 1 minute and 49 seconds IMPRESSION: As Above.
[2019-02-01 13:45] VITALS: RESP 18
[2019-02-01 13:48] LABS: Glucose,Whole Blood 222 mg/dL (75-99)
[2019-02-01 14:54] LABS: Glucose,Whole Blood 240 mg/dL (75-99)
[2019-02-01 16:53] LABS: Glucose,Whole Blood 223 mg/dL (75-99)
[2019-02-01 17:39] VITALS: BP 134/80; PULSE 70
== END | disposition home or self-care (01) ==
LOC: OR 08:56
PROVIDERS: ATTEND Urology
DX: N20.1 Calculus of ureter (principal); E11.9 Type 2 diabetes mellitus without complications; E78.5 Hyperlipidemia, unspecified; I10 Essential (primary) hypertension; Z87.442 Personal history of urinary calculi; Z98.890 Other specified postprocedural states; Z79.899 Other long term (current) drug therapy; Z80.51 Family history of malignant neoplasm of kidney
CPT/HCPCS: 52356; 82365; 74420; 74018; C2625; C1758; C1769; J2250; J1100; J0690; J2405; J2001; J3010; J1170; J2370; J2704; Q9967

== ENCOUNTER 2020-12-02 15:10 | Inpatient (IN) | payer BC ==
[2020-12-02 16:34] LABS: Appearance,Urine Clear (Clear); Bilirubin,Urine Negative (Negative); Blood,Urine Negative (Negative); Color,Urine Yellow; Glucose,Urine (UA) 4+ (Negative); Ketones,Urine Negative (Negative); Leukocyte Esterase,Urine Negative (Negative); Nitrite,Urine Negative (Negative); Protein,Urine Negative (Negative); Specific Gravity,Urine 1.019 (1.001-1.035); Urobilinogen,Urine <2.0 mg/dL (<2.0)
[2020-12-02 16:35] LABS: Basophils % (A) 1 %; Eosinophils # (A) 0.1 k/uL (0-0.7); Eosinophils % (A) 1 %; HCT 46.3 % (39.0-53.0); HGB 16.3 gm/dL (13.0-17.5); Lymphocytes # (A) 2.1 k/uL (1.0-4.8); Lymphocytes % (A) 34 %; MCH 33.6 pg (25.0-35.0); MCHC 35.3 g/dL (31.0-37.0); MCV 95.2 fL (80.0-100.0); Mean Platelet Volume 7.5; Monocytes # (A) 0.4 k/uL (0-1.0); Monocytes % (A) 7 %; Neutrophils # (A) 3.5 k/uL (1.3-7.7); Neutrophils % (A) 56 %; Platelet Count 248 k/uL (150-450); RBC 4.86 m/uL (4.30-5.90); RDW 13.1 % (11.5-15.5); WBC 6.3 k/uL (3.8-10.6)
[2020-12-02 16:44] LABS: INR 0.9 (<1.2); Partial Thromboplastin Time 22.3 sec (22.0-30.0); Prothrombin Time 10.2 sec (9.0-12.0)
[2020-12-02 16:53] LABS: Calcium 10.8 mg/dL (8.4-10.2); Potassium 4.4 mmol/L (3.5-5.1); Total Bilirubin 0.5 mg/dL (0.2-1.3); Total Protein 7.7 g/dL (6.3-8.2)
--- NOTE | 2020-12-02 17:48 | CT ---
EXAMINATION TYPE: CT brain wo con for TPA DATE OF EXAM: 12/02/2020 COMPARISON: None HISTORY: Dizziness with slurred speech x [address] DLP: 1102.8 mGycm Automated exposure control for dose reduction was used. Images obtained of the brain without contrast. Ventricles have normal size. There is no mass effect. There is some hypodensity in the right posterio r frontal lobe adjacent to the cerebral falx and the frontal horn right lateral ventricle and consist ent with an acute infarct. This measures 3.5 x 1.5 cm. There is no sign of intracranial hemorrhage. S alejandrina turcica appears normal. There is no evidence of posterior fossa mass. Calvarium is intact. There is normal aeration of the mastoid sinuses. IMPRESSION: Cortical hypodensity right posterior frontal lobe consistent with acute infarct.
--- NOTE | 2020-12-02 17:52 | XR ---
EXAMINATION TYPE: XR chest 2V DATE OF EXAM: 12/02/2020 COMPARISON: NONE HISTORY: Weakness TECHNIQUE: 2 views FINDINGS: Heart and mediastinum are normal. Lungs are clear. Diaphragm is normal. Bony thorax is inta ct. There are calcified granulomata at the right pulmonary hilum. IMPRESSION: No active cardiopulmonary disease. Normal heart.
--- NOTE | 2020-12-02 18:26 | CT ---
EXAMINATION TYPE: CT angio head neck DATE OF EXAM: 12/02/2020 COMPARISON: None HISTORY: Dizziness with slurred speech x [address] DLP: 678.5 mGycm Automated exposure control for dose reduction was used. CONTRAST: Performed with IV Contrast, patient injected with 65 mL of Isovue 370. There are 3-D post processed images. There is normal branching pattern of the great vessels on the aortic arch. There is bilateral arteria l flow in the subclavian arteries. There is arterial flow in the common internal and external carotid arteries bilaterally. There is arterial flow in both vertebral arteries. There is arterial flow in t he vertebrobasilar artery system. There is no evidence of carotid or vertebral artery aneurysm or dis section. There is wide patency of the carotid artery bifurcations. There is arterial flow in the anterior middle and posterior cerebral arteries. There is no mass effec t. I see no evidence of intracranial aneurysm or neovascularity. There is arterial flow in both dista l internal carotid arteries. There is arterial flow in the distal left anterior cerebral artery. Ther e is some diminished flow seen in the distal right anterior cerebral artery. There is hypodensity in the cortex of the medial right posterior frontal lobe adjacent to the cerebral falx and consistent wi th an acute infarct. IMPRESSION: Diminished distal arterial flow in the right anterior cerebral artery and corresponding to area of ap parent acute infarct right posterior frontal lobe. Normal CT angiogram of the neck.
[2020-12-02] MEDS ORDERED: ASPIRIN 325 MG TAB PO STA (18:48)
--- NOTE | 2020-12-02 19:10 | ED ---
General Adult HPI - General Chief complaint: Neuro Symptoms/Deficit Stated complaint: slurred speach, weakness, sent from Dr Time Seen by Provider: 12/02/20 15:33 Source: patient, RN notes reviewed, old records reviewed Mode of arrival: ambulatory - History of Present Illness Initial comments: Patient is a 55-year-old male with past medical history remarkable for hypertension, hyperlipidemia, diabetes who presents emergency Department for strokelike symptoms. Symptoms started last Wednesday and have not worsened regarding better. He is a very slight facial droop of the left mild with dysarthria. Patient's daughter is here to corroborate the story. Symptoms have not improved. The initially presented to his PCP who obtained blood work. He is told today to come to the emergency department for CT head. He is not on blood thinners. Has no history of strokes. Patient's only other complaint is mild lightheadedness which improved when he rests his head. He states it is initially bad when he stands up immediately but it resolves after a few moments. States he believes it is likely to him standing from a sitting position. Denies any syncopal episodes. Denies any vertiginous symptoms. He is still able to ambulate without difficulty. Denies any other acute complaints including chest pain, shortness breath, weakness, numbness, abdominal pain, nausea, vomiting. Denies any fevers, chills, sick contacts. His no other acute complaints at this time. Patient presents over concern for possible stroke due to his symptoms. Last known well was last week. He is not a TPA candidate. - Related Data Home Medications Medication Instructions Recorded Confirmed lisinopriL [Zestril] 10 mg PO HS 10/22/17 12/02/20 Fenofibrate 160 mg PO HS 10/04/18 12/02/20 Pravastatin Sodium 80 mg PO HS 10/04/18 12/02/20 Insulin Glargine [Lantus Vial] 40 unit SQ BID 12/02/20 12/02/20 metFORMIN HCL ER [Glucophage XR] 500 mg PO BID 12/02/20 12/02/20 Allergies Allergy/AdvReac Type Severity Reaction Status Date / Time No Known Allergies Allergy Verified 12/02/20 16:08 Review of Systems ROS Statement: Those systems with pertinent positive or pertinent negative responses have been documented in the HPI. Review of Systems: CONST: Denies fever EYES: Denies blurry vision ENT: Endorses facial droop, dysarthria C/V: Denies Chest pain RESP: Denies shortness of breath GI: Denies abdominal pain : Denies dysuria SKIN: Denies rash. MSK: Denies joint pain. NEURO: Denies headache ROS Other: All systems not noted in ROS Statement are negative. Past Medical History Past Medical History: Diabetes Mellitus, Hyperlipidemia, Hypertension Additional Past Medical History / Comment(s): kidney stones, taken off metformin and ran out of ozempic-states watching diet. History of Any Multi-Drug Resistant Organisms: None Reported Past Surgical History: No Surgical Hx Reported Additional Past Surgical History / Comment(s): LITHOTRIPSY Past Anesthesia/Blood Transfusion Reactions: No Reported Reaction Past Psychological History: No Psychological Hx Reported Smoking Status: Never smoker Past Alcohol Use History: Occasional Past Drug Use History: None Reported - Past Family History Mother Family Medical History: No Reported History Father Family Medical History: Cancer Additional Family Medical History / Comment(s): kidney cancer General Exam - General Exam Comments Initial Comments: General: Appears in no acute distress. HEAD: Normal with no signs of head trauma. EYES: PERRLA, EOMI, conjunctiva normal, no discharge. ENT: Hearing grossly intact, normal oropharynx. RESPIRATORY: Clear breath sounds bilaterally. No wheezes, rales, or rhonchi. C/V: Regular rate and rhythm. S1 and S2 auscultated, no edema, peripheral pulses 2+ and intact throughout ABD: Abd is soft, nontender, nondistended EXT: Normal range of motion, no obvious deformity SKIN: No rashes or lesions observed on exposed skin. NEURO: Alert and oriented 4. No focal sensory strength deficits. NIH stroke scale is 2, 1 point for dysarthria and 1 point for very slight left lower facial droop. Cerebellar function is intact as evident by normal finger to nose testing, no signs of dysdiadochokinesia, as well as normal exam-ez-sclm testing. He is able to ambulate without difficulty. Course Vital Signs 12/02/20 12/02/20 12/02/20 15:24 18:21 19:32 Temperature 98.3 F 98.1 F Pulse Rate 95 76 80 Respiratory 18 18 16 Rate Blood Pressure 133/92 132/98 141/87 O2 Sat by Pulse 94 L 96 97 Oximetry Medical Decision Making - Medical Decision Making Based on the patient's presentation and physical exam, I'm concerned for a possible CVA or TIA. NIH is 2. Last known well is multiple days ago, approximately 5 days ago. He is not a TPA candidate at this time, and not a thrombectomy candidate at this time. Therefore stroke pager was not activated. I did discuss this at length with the patient and he expressed understanding. We will obtain a full stroke workup including basic labs, troponin, EKG. Patient's blood sugar is within normal limits. We'll obtain a CT head as well as CTA of the brain and neck. He likely will be admitted to the hospital for further evaluation to telemetry bed. He was in agreement this plan. Patient's lavatory studies are remarkable for a mildly decreased bicarb at 21. Patient has a mild hypercalcemia 10.8. Troponin is negative. Urinalysis is unremarkable except for 4+ glucose. EKG showed no signs of acute ischemia. Chest x-ray revealed no acute cardiopulmonary process. CT head revealed a maira ical hypodensity in the right posterior frontal lobe consistent with an acute infarct. There was a slight delay in obtaining the read on the CTA head, was remarkable for diminished distal arterial flow in the right anterior cerebral artery and corresponding area of acute infarct in the right posterior frontal lobe. History of patient regarding these findings and explained that he had a stroke, and that he is not a tPA or thrombectomy candidate at this time. He Expressed understanding. NIH remains unchanged at 2. He will be admitted to the hospital. Patient will be given 325 mg of aspirin. I spoke with the neurologist on-call, Dr. Tapia, who was in agreement with this plan. He will evaluate the patient tomorrow. Patient did pass a swallow study and therefore was cleared to eat. I spoke with the admitting team under Dr. Sauceda, who accepted the patient, however requested that I recheck to the neuro intervention is to see if the patient requires transfer to neuro intervention center as a blockage is seen on CTA. It has been 5 days since onset of symptoms though. I did contact Dr. Salinas, the neurointerventionist wildland fire operations specialist, who stated that the patient is stable to remain at our hospital. No acute intervention is necessary at this time and no acute intervention will be done due to the time since last symptoms onset. He agrees the patient is not TPA candidate and is also not a thrombectomy candidate. He requested that I start the patient on an aspirin as well as subcutaneous heparin. This was done. I spoke with the patient regarding this and he expressed understanding. Patient was therefore admitted to Dr. Sauceda to a telemetry bed in serious condition for his acute CVA. - Lab Data Result diagrams: 12/02/20 16:20 12/02/20 16:20 Lab Results 12/02/20 12/02/20 12/02/20 Range/Units 16:20 16:20 16:20 WBC 6.3 (3.8-10.6) k/uL RBC 4.86 (4.30-5.90) m/uL Hgb 16.3 (13.0-17.5) gm/dL Hct 46.3 (39.0-53.0) % MCV 95.2 (80.0-100.0) fL MCH 33.6 (25.0-35.0) pg MCHC 35.3 (31.0-37.0) g/dL RDW 13.1 (11.5-15.5) % Plt Count 248 (150-450) k/uL MPV 7.5 Neutrophils % 56 % Lymphocytes % 34 % Monocytes % 7 % Eosinophils % 1 % Basophils % 1 % Neutrophils # 3.5 (1.3-7.7) k/uL Lymphocytes # 2.1 (1.0-4.8) k/uL Monocytes # 0.4 (0-1.0) k/uL Eosinophils # 0.1 (0-0.7) k/uL Basophils # 0.0 (0-0.2) k/uL PT 10.2 (9.0-12.0) sec INR 0.9 (<1.2) APTT 22.3 (22.0-30.0) sec Sodium 137 (137-145) mmol/L Potassium 4.4 (3.5-5.1) mmol/L Chloride 104 (98-107) mmol/L Carbon Dioxide 21 L (22-30) mmol/L Anion Gap 12 mmol/L BUN 26 H (9-20) mg/dL Creatinine 1.10 (0.66-1.25) mg/dL Est GFR (CKD-EPI)AfAm 87 (>60 ml/min/1.73 sqM) Est GFR (CKD-EPI)NonAf 75 (>60 ml/min/1.73 sqM) Glucose 129 H (74-99) mg/dL Calcium 10.8 H (8.4-10.2) mg/dL Total Bilirubin 0.5 (0.2-1.3) mg/dL AST 34 (17-59) U/L ALT 39 (4-49) U/L Alkaline Phosphatase 79 (38-126) U/L Troponin I (0.000-0.034) ng/mL Total Protein 7.7 (6.3-8.2) g/dL Albumin 5.0 (3.5-5.0) g/dL Urine Color Urine Appearance (Clear) Urine pH (5.0-8.0) Ur Specific [place] (1.001-1.035) Urine Protein (Negative) Urine Glucose (UA) (Negative) Urine Ketones (Negative) Urine Blood (Negative) Urine Nitrite (Negative) Urine Bilirubin (Negative) Urine Urobilinogen (<2.0) mg/dL Ur Leukocyte Esterase (Negative) 12/02/20 12/02/20 Range/Units 16:20 16:21 WBC (3.8-10.6) k/uL RBC (4.30-5.90) m/uL Hgb (13.0-17.5) gm/dL Hct (39.0-53.0) % MCV (80.0-100.0) fL MCH (25.0-35.0) pg MCHC (31.0-37.0) g/dL RDW (11.5-15.5) % Plt Count (150-450) k/uL MPV Neutrophils % % Lymphocytes % % Monocytes % % Eosinophils % % Basophils % % Neutrophils # (1.3-7.7) k/uL Lymphocytes # (1.0-4.8) k/uL Monocytes # (0-1.0) k/uL Eosinophils # (0-0.7) k/uL Basophils # (0-0.2) k/uL PT (9.0-12.0) sec INR (<1.2) APTT (22.0-30.0) sec Sodium (137-145) mmol/L Potassium (3.5-5.1) mmol/L Chloride (98-107) mmol/L Carbon Dioxide (22-30) mmol/L Anion Gap mmol/L BUN (9-20) mg/dL Creatinine (0.66-1.25) mg/dL Est GFR (CKD-EPI)AfAm (>60 ml/min/1.73 sqM) Est GFR (CKD-EPI)NonAf (>60 ml/min/1.73 sqM) Glucose (74-99) mg/dL Calcium (8.4-10.2) mg/dL Total Bilirubin (0.2-1.3) mg/dL AST (17-59) U/L ALT (4-49) U/L Alkaline Phosphatase (38-126) U/L Troponin I <0.012 (0.000-0.034) ng/mL Total Protein (6.3-8.2) g/dL Albumin (3.5-5.0) g/dL Urine Color Yellow Urine Appearance Clear (Clear) Urine pH 6.0 (5.0-8.0) Ur Specific [place] 1.019 (1.001-1.035) Urine Protein Negative (Negative) Urine Glucose (UA) 4+ H (Negative) Urine Ketones Negative (Negative) Urine Blood Negative (Negative) Urine Nitrite Negative (Negative) Urine Bilirubin Negative (Negative) Urine Urobilinogen <2.0 (<2.0) mg/dL Ur Leukocyte Esterase Negative (Negative) - EKG Data -: EKG Interpreted by Me EKG Comments: 12-lead Electrocardiogram Interpretation Note EKG was reviewed and interpreted by myself. 12-lead ECG performed at 1625 is interpreted by me as revealing normal sinus rhythm at a rate of 77 beats per minute. [place] is normal. [place] interval is 170 ms, QRS duration is 84 ms, QTc is 398 ms.. There were no ST or T wave abnormalities to suggest myocardial ischemia or injury. R wave progression across the precordium was satisfactory. By my interpretation this EKG is non-diagnostic for acute ischemia. Disposition Clinical Impression: CVA (cerebral vascular accident), Diabetes, Hypercalcemia Disposition: ADMITTED IP TO THIS HOSP Condition: Serious
--- NOTE | 2020-12-02 20:48 | US ---
EXAMINATION TYPE: US carotid duplex BILAT DATE OF EXAM: 12/02/2020 COMPARISON: CT angio 12/02/2020 CLINICAL HISTORY: stroke EXAM MEASUREMENTS: RIGHT: Peak Systolic Velocity (PSV) cm/sec ----- Right CCA: 61.2 ----- Right ICA: 74.2 ----- Right ECA: 87.3 ICA/CCA ratio: 1.2 RIGHT: End Diastole cm/sec ----- Right CCA: 14.2 ----- Right ICA: 33.8 ----- Right ECA: 10.3 LEFT: Peak Systolic Velocity (PSV) cm/sec ----- Left CCA: 80.7 ----- Left ICA: 71.6 ----- Left ECA: 108.2 ICA/CCA ratio: 0.9 LEFT: End Diastole cm/sec ----- Left CCA: 15.5 ----- Left ICA: 27.3 ----- Left ECA: 11.6 VERTEBRALS (direction of flow): Right Vertebral: Antegrade Left Vertebral: Antegrade Rhythm: Normal Minimal amount of plaque visualized bilaterally. No elevated velocities, no significant stenosis IMPRESSION: There is antegrade flow in the vertebral arteries. The images and measurements suggest less than 15% stenosis in both internal carotid arteries. NASCET criteria was used in interpretation of this exam? Criteria for Assigning % of Stenosis / Diameter reduction (Estimation based on the indirect measurements of the internal carotid artery velocities (ICA PSV). 1. Normal (no stenosis)=ICA PSV < 125 cm/s: ratio < 2.0: ICA EDV<40 cm/s. 2. Less than 50% stenosis=ICA PSV < 125 cm/s: ratio < 2.0: ICA EDV<40 cm/s. 3. 50 to 69% stenosis=ICA PSV of 125 to 230 cm/s: ration 2.0 ? 4.0: ICA EDV 40-100 cm/s. 4. Greater than 70% stenosis to near occlusion= ICA PSV > 230 cm/s: ratio > 4.0: ICA EDV > 100 cm/s. 5. Near occlusion= ICA PSV velocities may be low or undetectable: variable ratio and ICA EDV. 6. Total occlusion=unable to detect flow.
--- NOTE | 2020-12-02 21:43 | HP ---
HISTORY AND PHYSICAL DATE OF SERVICE: 12/02/2020 CHIEF COMPLAINTS: Dizziness, left facial droop and dysarthria. HISTORY OF PRESENT ILLNESS: This 55-year-old gentleman with a past medical history of diabetes mellitus, dyslipidemia, hypertension, history of kidney stones, lithotripsy, being followed by Dr. Johnson in the outpatient setting, was having symptoms of dizziness and left facial droop for the past couple of days. The patient was evaluated as an outpatient, but because of concerns and non improvement, the patient was taken to [facility] and admitted for further evaluation and treatment. The patient had multiple evaluations already in the ER. CT brain showed a cortical hypodensity in the right posterior frontal lobe consistent with acute infarct. Chest x-ray showed no acute abnormality. A CT angio was also done which showed diminished distal arterial flow in the right anterior cervical artery corresponding to the area of apparent acute infarct, right posterior lobe. Neurology evaluation is in progress. There is no history of any fever, rigors or chills. No history of headache, loss of consciousness, seizures. PAST MEDICAL HISTORY: History of diabetes mellitus, hypertension, hyperlipidemia, kidney stones. MEDICATIONS: Home medications are Glucophage, Zestril, pravastatin, Lantus, fenofibrate. ALLERGIES: NONE. FAMILY HISTORY: History of kidney stones. SOCIAL HISTORY: No history of smoking. REVIEW OF SYSTEMS: ENT: No diminished hearing. No diminished vision. CARDIOVASCULAR SYSTEM: No angina, palpitations. RESPIRATORY SYSTEM: No cough, hemoptysis. GI: No nausea, vomiting, diarrhea. : No dysuria. NERVOUS SYSTEM: As mentioned earlier. ALLERGY/IMMUNOLOGY: No asthma or hay fever. MUSCULOSKELETAL: As mentioned earlier. HEMATOLOGY/ONCOLOGY: No history of anemia. ENDOCRINE: No history of diabetes, hypothyroidism. CONSTITUTIONAL: As mentioned earlier. DERMATOLOGY: Negative. RHEUMATOLOGY: Negative. PSYCHIATRY: As mentioned earlier. PHYSICAL EXAMINATION: Patient alert and oriented x3. Pulse is 76, blood pressure 130/90, respiration 18, temperature 98.1, pulse ox 96% on room air. HEENT: Conjunctivae normal. NECK: No jugular venous distention. CARDIOVASCULAR: S1, S2 muffled. RESPIRATION: Breath sounds diminished at the bases. A few scattered rhonchi and crackles. ABDOMEN: Soft, obese, non-tender. No mass palpable. LEGS: No edema. No swelling. NERVOUS SYSTEM: Higher functions as mentioned earlier. Minimal facial deviation on the left side. Power is normal. Reflexes are normal. No gait dysfunction. No sensory or cerebellar incoordination. Minimal dysarthria noted. SKIN: No ulcer, rash, bleeding. JOINTS: No active deforming arthropathy. LYMPHATICS: No lymph node palpable in neck, axillae or groin. LABS: At this time CBC is within normal limits. CO2 is 21. Calcium is 10.8. 4+ glucose. The serum glucose is 129. ASSESSMENT: 1. Left-sided facial droop caused by acute stroke involving the right posterior frontal lobe. 2. Dysarthria. 3. Hypercalcemia, mild. 4. Diabetes mellitus, type 2, uncontrolled with hyperglycemia. 5. Hyperlipidemia. 6. Hypertension. 7. History of kidney stones. 8. Lithotripsy. RECOMMENDATIONS AND DISCUSSION: In this 55-year-old gentleman who presented with multiple complex medical issues, we will monitor the patient closely, continue the current medications, continue with symptomatic treatment. I recommend neurology consultation and a neurosurgery intensive consult also because of the abnormal CT angio. Otherwise, continue the rest of the medications. Antiplatelet agents, hyperlipidemic agents. Prognosis guarded because of multiple complex medical issues. Further recommendations to follow. A copy of this dictation is being forwarded to Dr. Johnson, who is the primary physician. YANCI / JOHANNE: [id number] / [id number]
[2020-12-02 22:07] LABS: Glucose,Whole Blood 270 mg/dL (75-99)
[2020-12-02] MEDS ORDERED: PRAVASTATIN SODIUM 40 MG TAB PO SCH (22:15)
[2020-12-02] MEDS: FENOFIBRATE 160 MG TAB PO SCH (22:25)
[2020-12-02] MEDS: INSULIN DETEMIR (LEVEMIR) 100 UNIT/ML SYR SQ SCH (22:25)
[2020-12-02] MEDS: lisinopriL 10 MG TAB PO SCH (22:25)
[2020-12-02] MEDS: metFORMIN 500 MG TAB PO SCH (22:25)
[2020-12-02] MEDS: HEPARIN SODIUM,PORCINE/PF 5,000 UNIT/0.5 ML SYRINGE SQ SCH (23:01)
[2020-12-03 06:10] LABS: Glucose,Whole Blood 124 mg/dL (75-99)
[2020-12-03] MEDS: INSULIN DETEMIR (LEVEMIR) 100 UNIT/ML SYR SQ SCH ×2 (08:44→21:20)
[2020-12-03] MEDS: HEPARIN SODIUM,PORCINE/PF 5,000 UNIT/0.5 ML SYRINGE SQ SCH ×3 (08:44→23:44)
[2020-12-03] MEDS: metFORMIN 500 MG TAB PO SCH ×2 (08:44→21:20)
[2020-12-03] MEDS ORDERED: LORazepam 2 MG/ML INJ IV STA (10:31)
[2020-12-03] MEDS: ASPIRIN 81 MG PO SCH (11:06)
[2020-12-03] MEDS: CLOPIDOGREL 75 MG TAB PO SCH (11:06)
--- NOTE | 2020-12-03 11:45 | P.CNNES ---
History of Present Illness Consult date: 12/03/20 Requesting physician: Marcial Perez Reason for Consult: CVA History of Present Illness: This is a 55-year-old right-handed gentleman with medical history of diabetes mellitus (5 years), hyperlipidemia, hypertension (5 years) who presented emergency department on the 12/02/2020 for left facial droop as well as dysarth lety. Patient stated that on 11/27/20 he was feeling dizzy while sitting in the chair and he was dizzy not room. He also felt wobbly while walking He denied any ringing of the ears, hearing loss, visual disturbance or any other neurological problems he noticed. He saw his PCP the next day and his PCP ran some blood work and notified him if it is normal then he needs further work-up such as imaging. His daughter noticed on wednesday that patient had left facial droop and was slurring his speech. Patient stated it took some time to hear from his PCP and eventually was told his lab work-up was normal. He denies any weakness of any extremities, paresthesia, he was told he was slurring speech and when asking to explain more he said he knows what he wants to says but few occasions the words becomes twisted. Denies difficulty understand others. Denies of headaches. The patient is not on any anticoagulation or antiplatelets. Patient denies history of stroke, TIA. He denies of tobacco use, or illicit drug use. He socially drinks alcohol. He denies of any family history of stroke. Patient on medication consist of metformin, lisinopril, pravastatin, insulin, fenofibrate 160mg qhs. Some of the workup in hospital consisted of: Initial vitals: Blood pressure of 133/92, heart rate of 95, respiratory of 18, temperature of 98.3 Fahrenheit oral and pulse ox of the 94% at room air. CBC with differential is unremarkable. Chemistry panel is initial serum glucose 129 which is just slightly elevated but the during the hospital stay his POC glucose has been in the range of 120s to 270. Otherwise the rest of the chemistry panel is unremarkable. Coagulation study: PT 10.2, INR 0.9 and PTT of 22.3. CT of the head is reported as cortical hypodensity in the right posterior frontal lobe consistent with acute infarct. CT angiography of the head and neck was reported as for the head it's reported as diminished distal arterial flow in the right anterior cerebral artery and corresponding to area of acute infarct in the right posterior frontal lobe. Normal CT angiography of the neck. Carotid duplex is reported as there is antegrade flow in the vertebral arteries appeared the images and measurements suggest less than 15% stenosis in both internal carotid arteries. EKG is reported as normal sinus rhythm. Minimal voltage criteria for left ventricular hypertrophy, may be normal variant. Borderline EKG. NIH of 2 according to ED. Patient did not get TPA since the patient is outside the window. The ED spoke to neuro-intervention team (Dr. Archibald) per primary team request. Then neuro-endovascular team as stated that the patient is stable to remain in our facility and no intervention is needed at this time since his symptoms onset was at least 5 days. Review of Systems Review of system: The 12 point system was reviewed and apparent positive and negative per HPI. Past Medical History Past Medical History: Diabetes Mellitus, Hyperlipidemia, Hypertension Additional Past Medical History / Comment(s): kidney stones, taken off metformin and ran out of ozempic-states watching diet. History of Any Multi-Drug Resistant Organisms: None Reported Past Surgical History: No Surgical Hx Reported Additional Past Surgical History / Comment(s): LITHOTRIPSY Past Anesthesia/Blood Transfusion Reactions: No Reported Reaction Past Psychological History: No Psychological Hx Reported Smoking Status: Never smoker Past Alcohol Use History: Occasional Past Drug Use History: None Reported - Past Family History Mother Family Medical History: No Reported History Father Family Medical History: Cancer Additional Family Medical History / Comment(s): kidney cancer Medications and Allergies Home Medications Medication Instructions Recorded Confirmed Type lisinopriL [Zestril] 10 mg PO HS 10/22/17 12/02/20 History Fenofibrate 160 mg PO HS 10/04/18 12/02/20 History Pravastatin Sodium 80 mg PO HS 10/04/18 12/02/20 History Insulin Glargine [Lantus Vial] 40 unit SQ BID 12/02/20 12/02/20 History metFORMIN HCL ER [Glucophage XR] 500 mg PO BID 12/02/20 12/02/20 History Allergies Allergy/AdvReac Type Severity Reaction Status Date / Time No Known Allergies Allergy Verified 12/02/20 16:08 Physical Examination - Vital Signs Vital Signs: Vital Signs Temp Pulse Pulse Resp BP BP Pulse Ox 12/03/20 03:23 97.7 F 73 16 100/58 99 12/02/20 23:18 98.0 F 74 16 130/64 95 12/02/20 20:00 98.3 F 76 16 134/81 95 12/02/20 19:32 80 16 141/87 97 12/02/20 18:21 98.1 F 76 18 132/98 96 12/02/20 15:24 98.3 F 95 18 133/92 94 L Intake and Output 12/02/20 12/03/20 12/03/20 22:59 06:59 14:59 Intake Total 150 Balance 150 Intake: Oral 150 Other: Voiding Method Toilet Toilet Urinal Urinal # Voids 0 Weight 113 kg 110.6 kg GENERAL: The patient is lying in bed and is not in acute distress. CHEST: The heart rate is regular rate rhythm. No murmurs to auscultation. No carotid bruit bilaterally. LUNG: Clear to auscultation bilaterally no wheezing noted throughout. Not labored breathing. ABDOMEN/GI: Bowel sounds present in all 4 quadrants. No tenderness to palpation throughout. NEUROLOGICAL: Higher mental function: The patient is awake, alert, oriented to self, place and time. Patient is following commands. No aphasia and no neglect. Cranial nerves: The pupils are round, equal and reactive to light and accommodation. Visual zee are full to confrontation throughout. Extraocular movement is intact no nystagmus is noted. Facial sensation is normal to touch throughout. The facial strength is left nasolabial flattening. Hearing is normal bilaterally to hand rub. Tongue is midline and moved [id number] without any difficulty. No dysarthria is noted. Shoulder shrug is normal bilaterally. Motor:Gait is normal The strength is left upper extremity is 5-. Otherwise 5 over 5 throughout. Normal tone and bulk. Cerebellum: Normal finger to nose heel to leyva bilaterally. Sensation: Sensation is normal to touch throughout. Reflexes (right/left): 2+ Plantars are downgoing bilaterally. Results - Laboratory Findings CBC and BMP: 12/02/20 16:20 12/02/20 16:20 Abnormal Lab Findings: Abnormal Labs 12/02/20 12/02/20 12/02/20 16:20 16:21 22:06 Carbon Dioxide 21 L BUN 26 H Glucose 129 H POC Glucose (mg/dL) 270 H Calcium 10.8 H Urine Glucose (UA) 4+ H 12/03/20 06:08 Carbon Dioxide BUN Glucose POC Glucose (mg/dL) 124 H Calcium Urine Glucose (UA) Assessment and Plan Assessment: * Subacute ischemic stroke over the right frontal (had symptoms of dizziness, mild left facial weakness, dysarthria (was told by his daughter he was slurring. But he felt words comes out as twisted)). No tpa or intervention since outside window (time of onset is 11/27/20) * Diminished distal arterial flow in the right anterior cerebral artery per CTA head (no intervention since onset is 5 days prior to presentation) * Diabetes mellitus * Hypertension * Hyperlipidemia * Obesity Plan: * He was given aspirin 325 once. I started the patient on aspirin 81mg and Plavix 75mg daily. Patient to be on dual antiplatelets for 21 days and after 21 days. Plavix and continue aspirin indefinitely. Patient is on pravastatin 80 mg daily at bedtime and that's to be continued for secondary stroke prophylaxis. * I ordered MRI of the brain. * 2-D echo, lipid panel are ordered and are pending. I ordered hemoglobin A1c as well as TSH level. * Continue neuro checks. * On continuous cardiac monitoring. Ordered event monitor for 21 and to follow- up with a disc recordist as outpatient. * PT, OT and FORECLOSURE HOME INSPECTOR are consulted. * We'll defer the rest of the medical management to primary team. * DVT prophylaxis: On Subq heparin. Upon discharge the patient needs to follow-up with a neurologist as outpatient within 1-2 weeks. Thank you for the consultation. Laurent Tapia MD Neuro-Hospitalist Time with Patient: Greater than 30
[2020-12-03 11:53] LABS: Glucose,Whole Blood 126 mg/dL (75-99)
[2020-12-03 14:01] LABS: Chol/HDL Ratio 5.68; LDL Cholesterol,Calculated 95.2 mg/dL (0.0-131.0); VLDL Calculation 63.8 mg/dL (5.00-40.00)
--- NOTE | 2020-12-03 14:49 | MR ---
EXAMINATION TYPE: MR brain wo con DATE OF EXAM: 12/03/2020 2:22 PM COMPARISON: NONE HISTORY: Stroke, left facial droop and dysarthria. Multiplanar and multispin-echo imaging of the brain was performed . The ventricles, basal cisterns and sulci overlying the cerebral convexities are within normal limits. There is no evidence for midline shift or mass effect. Acute intracranial hemorrhage or extra-axial collection is not evident. The brain parenchyma reveals no abnormal increased signal. Diffusion-weighted imaging demonstrates abnormal increased signal within the high right paramedian ri ght frontal lobe with the largest area of involvement measuring 5 cm AP dimension by 1.5 cm transvers e dimension. Additional smaller foci noted. Additional focal area adjacent to or involving the spleni um. Findings are compatible with acute CVA. The paranasal sinuses and mastoid air cells are well-aerated. IMPRESSION: Findings compatible with acute right TATIANNA territory CVA.
--- NOTE | 2020-12-03 15:39 | PN ---
PROGRESS NOTE DATE OF SERVICE: 12/03/2020 INTERVAL HISTORY: This 55-year-old gentleman who was being admitted with left facial droop and dysarthria was evaluated for stroke at this time. Two-D echo with Doppler is pending at this time, as well as MRI. Neurology following the patient closely. No chest pain. No palpitations. No fever. Minimal facial droop was visible. PHYSICAL EXAMINATION: Alert and oriented x3. Pulse 91, blood pressure 118/75 respiration 14, temperature 98.1, pulse ox 94% on room air skin: S1, S2 muffled. HEENT: Conjunctivae normal. Oral mucosa moist. NECK: No jugular venous distention. No lymph node enlargement. CARDIOVASCULAR: S1, S2, muffled. No S3, no S4, RESPIRATORY: Diminished breath sounds at the bases. A few rhonchi. ABDOMEN: Soft, obese. LEGS: No edema, no swelling. NERVOUS SYSTEM: No focal deficits except the left nasolabial flattening and visual deviation. LABS: CBC within normal limits. Glucose 126. Lipids are not available. ASSESSMENT: 1. Left-sided facial droop, possible acute stroke involving the right posterior frontal lobe. 2. Right anterior cerebral artery occlusion. 3. Dysarthria. 4. Hypercalcemia, mild. 5. Diabetes mellitus type 2, uncontrolled with hyperglycemia. 6. Hyperlipidemia. 7. Hypertension. 8. History of kidney stones. 9. History of lithotripsy. 10.Obesity with body mass index of 34. RECOMMENDATIONS: In this 55-year-old gentleman who presented with multiple complex issues, we will monitor the patient closely, continue the current management. Continue with antiplatelet agents and continue hyperlipidemic medications and will monitor blood sugars closely. Guarded prognosis because of multiple complex medical issues. Further recommendations to follow. MMODL / IJN: [id number] /
--- NOTE | 2020-12-03 16:00 | ECHOF ---
Referral Reason:Thrombus MEASUREMENTS -------- HEIGHT: 180.3 cm WEIGHT: 29.5 kg BP: IVSd: 1.4 cm (0.6 - 1.1) LVIDd: 2.8 cm (3.9 - 5.3) LVPWd: 1.1 cm (0.6 - 1.1) EDV(Teich): 31 ml IVSs: 1.7 cm LVIDs: 1.5 cm LVPWs: 1.8 cm %IVS Thck: 27 % ESV(Teich): 6 ml EF(Teich): 79 % %FS: 46 % SV(Teich): 24 ml RVIDd: 3.1 cm (< 3.3) Ao Diam: 3.0 cm (2.0 - 3.7) LA Diam: 2.9 cm (2.7 - 3.8) AV Cusp: 2.2 cm (1.5 - 2.6) EPSS: 1.2 cm MV E Ethan: 0.45 m/s MV DecT: 193 ms MV Dec [place]: 2.3 m/s MV A Ethan: 0.52 m/s MV E/A Ratio: 0.86 MV PHT: 56 ms MR Vmax: 0.88 m/s MR maxP.09 mmHg AV Vmax: 0.90 m/s AV maxP.21 mmHg TR Vmax: 1.29 m/s TR maxP.68 mmHg RAP: 5.00 mmHg RVSP: 11.68 mmHg MV EF SLOPE: 76.57 mm/s (70 - 150) MV EXCURSION: 14.45 mm (> 18.000) FINDINGS -------- This was a technically difficult study with suboptimal views. The left ventricular size is normal. There is mild concentric left ventricular hypertrophy. Overa ll left ventricular systolic function is mild-moderately impaired with, an EF between 40 - 45 %. [place] inferoseptal LV wall motion is hypokinetic. Mid anteroseptal LV wall motion is hypokinetic. Basal inferolateral appears hypokinetic. The right ventricle is normal in size. The left atrial size is normal. The right atrial size is normal. The aortic valve is trileaflet and appears structurally normal. The mitral valve is normal. There is trace mitral regurgitation. The tricuspid valve appears structurally normal. Trace tricuspid regurgitation present. Right rose mary tricular systolic pressure is normal at < 35 mmHg. There is no pulmonic regurgitation present. The aortic root size is normal. IVC Not well visulized. There is no pericardial effusion. CONCLUSIONS -------- 1. The left ventricular size is normal. 2. There is mild concentric left ventricular hypertrophy. 3. Overall left ventricular systolic function is mild-moderately impaired with, an EF between 40 - 45 %. 4. Basal inferolateral appears hypokinetic. 5. There is trace mitral regurgitation. 6. Trace tricuspid regurgitation present. 7. There is no pericardial effusion. TOOL AND DIE ENGINEER: Julienne Perry RDCS
[2020-12-03] MEDS: INSULIN ASPART (NovoLOG) 100 UNIT/ML VIAL SQ SCH ×2 (17:14→21:20)
[2020-12-03 17:17] LABS: Glucose,Whole Blood 140 mg/dL (75-99)
[2020-12-03] MEDS: ATORVASTATIN 40 MG TAB PO SCH (17:21)
[2020-12-03 17:28] VITALS: RESP 16
[2020-12-03 20:29] LABS: Glucose,Whole Blood 214 mg/dL (75-99)
[2020-12-03] MEDS: FENOFIBRATE 160 MG TAB PO SCH (21:19)
[2020-12-03] MEDS: lisinopriL 10 MG TAB PO SCH (21:20)
[2020-12-04 06:10] LABS: Glucose,Whole Blood 134 mg/dL (75-99)
[2020-12-04] MEDS: INSULIN ASPART (NovoLOG) 100 UNIT/ML VIAL SQ SCH ×2 (06:26→12:23)
[2020-12-04 07:32] VITALS: TEMP 97.5
[2020-12-04 07:52] LABS: Calcium 10.4 mg/dL (8.4-10.2); Potassium 4.6 mmol/L (3.5-5.1)
[2020-12-04 07:58] LABS: Basophils % (A) 1 %; Eosinophils # (A) 0.1 k/uL (0-0.7); Eosinophils % (A) 2 %; HCT 46.2 % (39.0-53.0); HGB 16.2 gm/dL (13.0-17.5); Lymphocytes # (A) 2.7 k/uL (1.0-4.8); Lymphocytes % (A) 45 %; MCHC 35.1 g/dL (31.0-37.0); MCV 94.2 fL (80.0-100.0); Monocytes # (A) 0.4 k/uL (0-1.0); Monocytes % (A) 7 %; Neutrophils # (A) 2.6 k/uL (1.3-7.7); Neutrophils % (A) 43 %; Platelet Count 253 k/uL (150-450); RBC 4.91 m/uL (4.30-5.90); RDW 12.6 % (11.5-15.5)
[2020-12-04 08:14] LABS: Glucose,Whole Blood 255 mg/dL (75-99)
[2020-12-04] MEDS: HEPARIN SODIUM,PORCINE/PF 5,000 UNIT/0.5 ML SYRINGE SQ SCH (08:16)
[2020-12-04] MEDS: CLOPIDOGREL 75 MG TAB PO SCH (08:17)
[2020-12-04] MEDS: ASPIRIN 81 MG PO SCH (08:17)
[2020-12-04] MEDS: INSULIN DETEMIR (LEVEMIR) 100 UNIT/ML SYR SQ SCH (08:17)
[2020-12-04] MEDS: metFORMIN 500 MG TAB PO SCH (08:17)
[2020-12-04] MEDS: ATORVASTATIN 40 MG TAB PO SCH (08:17)
--- NOTE | 2020-12-04 11:01 | P.PN ---
Subjective Progress Note Date: 12/04/20 The patient is seen at bedside and stated he is doing better compared to his initial presentation. He denies of any speech difficulty or slurring of speech. He denies of any new neurological problems. Objective - Vital Signs Vital signs: Vital Signs Temp 97.5 F L 12/04/20 07:32 Pulse 74 12/04/20 07:32 Resp 16 12/04/20 07:32 BP 110/76 12/04/20 07:32 Pulse Ox 96 12/04/20 07:32 Intake & Output 12/03/20 12/04/20 12/04/20 18:59 06:59 18:59 Intake Total 1005 240 Balance 1005 240 Weight 109 kg Intake: Oral 1005 240 Other: Voiding Method Toilet Toilet Urinal Urinal # Voids 3 3 - Exam GENERAL: The patient is lying in bed and is not in acute distress. NEUROLOGICAL: Higher mental function: The patient is awake, alert, oriented to self, place and time. Patient is following commands. No aphasia and no neglect. Cranial nerves: The pupils are round, equal and reactive to light and accommodation. Visual zee are full to confrontation throughout. Extraocular movement is intact no nystagmus is noted. Facial sensation is normal to touch throughout. The facial strength is left nasolabial flattening. Hearing is normal bilaterally to hand rub. Tongue is midline and moved [id number] without any difficulty. No dysarthria is noted. Shoulder shrug is normal bilaterally. Motor:Gait is normal The strength is left upper extremity is 5-. Otherwise 5 over 5 throughout. Normal tone and bulk. Cerebellum: Normal finger to nose heel to leyva bilaterally. Sensation: Sensation is normal to touch throughout. Reflexes (right/left): 2+ Plantars are downgoing bilaterally. WORK-UP: The panel: Triglyceride of 319, cholesterol is 193, LDL of 95, HDL of 34. TSH is 2.180 which is within normal limits Hemoglobin A1c 7.0 (elevated. per patient his HbA1c is trending down and stated it use to be as high as 11). NIH of 2 according to ED. Patient did not get TPA since the patient is outside the window. CT of the head is reported as cortical hypodensity in the right posterior frontal lobe consistent with acute infarct. CT angiography of the head and neck was reported as for the head it's reported as diminished distal arterial flow in the right anterior cerebral artery and corresponding to area of acute infarct in the right posterior frontal lobe. Normal CT angiography of the neck. Carotid duplex is reported as there is antegrade flow in the vertebral arteries appeared the images and measurements suggest less than 15% stenosis in both internal carotid arteries. I the brain is reported as finding compatible with acute right [place] territory CVA. I personally reviewed the MRI and I felt was subacute since there is changes over the FLAIR. as well changes seen on CT head already. EKG is reported as normal sinus rhythm. Minimal voltage criteria for left ventricular hypertrophy, may be normal variant. Borderline EKG. 2-D echo was reported as left ventricular size is normal. Mild concentric left ventricular hypertrophy. Left ventricle systolic function is a mild to moderately impaired with ejection fraction of 40-45%. Basal inferior lateral appears hypokinetic. - Labs CBC & Chem 7: 12/04/20 06:59 12/04/20 06:59 Labs: Abnormal Lab Results - Last 24 Hours (Table) 12/03/20 12/03/20 12/03/20 Range/Units 07:32 07:32 11:51 Sodium (137-145) mmol/L BUN (9-20) mg/dL Creatinine (0.66-1.25) mg/dL Glucose (74-99) mg/dL POC Glucose (mg/dL) 126 H (75-99) mg/dL Hemoglobin A1c 7.0 H (4.0-6.0) % Calcium (8.4-10.2) mg/dL Triglycerides 319.0 H (0.0-149.0) mg/dL VLDL Cholesterol, Calc 63.80 H (5.00-40.00) mg/dL HDL Cholesterol 34.0 L (40.0-60.0) mg/dL 12/03/20 12/03/20 12/04/20 Range/Units 17:04 20:28 06:08 Sodium (137-145) mmol/L BUN (9-20) mg/dL Creatinine (0.66-1.25) mg/dL Glucose (74-99) mg/dL POC Glucose (mg/dL) 140 H 214 H 134 H (75-99) mg/dL Hemoglobin A1c (4.0-6.0) % Calcium (8.4-10.2) mg/dL Triglycerides (0.0-149.0) mg/dL VLDL Cholesterol, Calc (5.00-40.00) mg/dL HDL Cholesterol (40.0-60.0) mg/dL 12/04/20 12/04/20 Range/Units 06:59 08:12 Sodium 136 L (137-145) mmol/L BUN 25 H (9-20) mg/dL Creatinine 1.32 H (0.66-1.25) mg/dL Glucose 148 H (74-99) mg/dL POC Glucose (mg/dL) 255 H (75-99) mg/dL Hemoglobin A1c (4.0-6.0) % Calcium 10.4 H (8.4-10.2) mg/dL Triglycerides (0.0-149.0) mg/dL VLDL Cholesterol, Calc (5.00-40.00) mg/dL HDL Cholesterol (40.0-60.0) mg/dL Assessment and Plan Assessment: * Subacute ischemic stroke over the right frontal (had symptoms of dizziness, mild left facial weakness, dysarthria (was told by his daughter he was slurring. But he felt words comes out as twisted)). No tpa or intervention since outside window (time of onset is 11/27/20). His stroke is cryptogenic at this point but seem embolic. * Diminished distal arterial flow in the right anterior cerebral artery per CTA head (no intervention since onset is 5 days prior to presentation) * Diabetes mellitus (his current HbA1c 7.0 and stated it was as high as 11). * Mild to moderately impaired systolic ejection fraction 40-45% * Hypertension * Hyperlipidemia * Obesity Plan: * Continue aspirin 81mg and Plavix 75mg daily (was not on any antiplatetlets at home). Patient to be on dual antiplatelets for 21 days and after 21 days, then after that discontinue Plavix and continue aspirin indefinitely. Patient is on pravastatin 80 mg daily at bedtime and that's to be continued for secondary stroke prophylaxis. * Continue neuro checks. * On continuous cardiac monitoring (so far he is in sinus rhtyhm). Ordered event monitor for 21 and to follow-up with a water quality technician as outpatient. * Patient wants to get NARCISA as outpatient. He was notified to follow-up with water quality technician as outpatient and was notified about his 2D echo report. * PT, OT and END MAKER are consulted. * We'll defer the rest of the medical management to primary team. * DVT prophylaxis: On Subq heparin. Upon discharge the patient needs to follow-up with a neurologist as outpatient within 1-2 weeks. There is no further work-up. He is clear from neurological stand point. Laurent Tapia MD Neuro-Hospitalist Time with Patient: Less than 30
[2020-12-04 11:46] LABS: Glucose,Whole Blood 139 mg/dL (75-99)
[2020-12-04 12:55] LABS: Chol/HDL Ratio 6.1; LDL Cholesterol,Calculated 69.8 mg/dL (0.0-131.0); VLDL Calculation 78.2 mg/dL (5.00-40.00)
[2020-12-04 13:08] VITALS: BP 113/75; PULSE 66
--- NOTE | 2020-12-05 09:31 | P.DS ---
Providers Date of admission: 12/02/20 19:05 Expected date of discharge: 12/04/20 Attending physician: Obed Sauceda Consults: 12/02/20 19:06 Consult Physician Routine Consulting Provider: Laurent Tapia Consult Reason/Comments: CVA Do you want consulting provider notified?: Yes Primary care physician: Taina Foreman Hospital Course: Final diagnosis Left side facial droop, acute stroke involving right posterior frontal lobe Right anterior cerebral artery occlusion Dysarthria Hypercalcemia, mild diabetes mellitus type 2 uncontrolled with hyperglycemia Hyperlipidemia Hypertension history of kidney stones history of lithotripsy Obesity with a body mass index of 34 Full code Discharge disposition Patient is being discharged in a stable condition with guarded prognosis to home. Patient will follow-up with Dr. Foreman in the outpatient setting upon discharge. Patient is to also follow-up with cardiology Dr. Brasher along with neurology Dr. Geronimo in one week. Patient is continue on his statin and will continue with aspirin and Plavix on discharge. Total time taken is greater than 35 minutes. Hospital course This is a 55-year-old male who was recently admitted with left facial droop and dysarthria and was evaluated for stroke with neurology following closely. Patient underwent brain MRI showing no acute intracranial hemorrhage or midline shift or mass effect noted but findings compatible with acute right [place] territory CVA. Neurology recommending event monitor on discharge and this is being arranged prior to being sent home. To follow-up with cardiology and provided resources for Dr. Geronimo neurology to follow-up with this week. Recommend monitoring blood sugars closely and keeping a diary of blood sugar readings. Continue with consistent carb diet. Currently no reports of chest pain, shortness of breath, or palpitations. Patient is afebrile. No reports of nausea or vomiting and patient is tolerating diet. Patient is requesting to go home today. Denies any neural deficits. Patient will be discharged home today. Guarded prognosis On exam vital signs are stable. Cardio S1, S2 are muffled. Respiratory system shows diminished breath sounds at the bases with no wheezing or rhonchi noted. Abdomen is soft and obese, and nontender. Nervous system shows no focal deficits. Please refer to medication reconciliation sheet for a list of medications. Patient Condition at Discharge: Stable Plan - Discharge Summary Discharge Rx Participant: No New Discharge Prescriptions: New Clopidogrel [Plavix] 75 mg PO DAILY 30 Days #30 tab Aspirin 81 mg PO DAILY 30 Days #30 tab Continue lisinopriL [Zestril] 10 mg PO HS Pravastatin Sodium 80 mg PO HS Fenofibrate 160 mg PO HS metFORMIN HCL ER [Glucophage XR] 500 mg PO BID Insulin Glargine [Lantus Vial] 40 unit SQ BID Discharge Medication List lisinopriL [Zestril] 10 mg PO HS 10/22/17 [History] Fenofibrate 160 mg PO HS 10/04/18 [History] Pravastatin Sodium 80 mg PO HS 10/04/18 [History] Insulin Glargine [Lantus Vial] 40 unit SQ BID 12/02/20 [History] metFORMIN HCL ER [Glucophage XR] 500 mg PO BID 12/02/20 [History] Aspirin 81 mg PO DAILY 30 Days #30 tab 12/04/20 [Rx] Clopidogrel [Plavix] 75 mg PO DAILY 30 Days #30 tab 12/04/20 [Rx] Follow up Appointment(s)/Referral(s): Arvind Brasher MD [STAFF PHYSICIAN] - 1 Week (Office to call pt. with appointment. ) Taina Foreman DO [Primary Care Provider] - 1-2 days Belgica Geronimo MD [Medical Doctor] - 1 Week Activity/Diet/Wound Care/Special Instructions: Event monitor on discharge activity limited until follow-up Continue with medications as prescribed follow up outpatient with primary care provider Follow-up outpatient with neurology this week Follow-up cardiology outpatient in the next 3-4 weeks Continue consistent carb heart healthy diet and continue to monitor blood sugars before meals and at bedtime Recommend repeat labs in 2-3 days to monitor kidney functions Discharge Disposition: HOME SELF-CARE
== END 2020-12-04 15:17 | disposition home or self-care (01) | DRG 66 ==
LOC: EC 15:10 → 3SCARD 19:05
PROVIDERS: ADMIT Hospitalist; ATTEND Hospitalist
DX: I63.531 Cerebral infarction due to unspecified occlusion or stenosis of right posterior cerebral artery (principal); I63.421 Cerebral infarction due to embolism of right anterior cerebral artery; R29.810 Facial weakness; R47.1 Dysarthria and anarthria; E11.65 Type 2 diabetes mellitus with hyperglycemia; E78.5 Hyperlipidemia, unspecified; R29.702 NIHSS score 2; E83.52 Hypercalcemia; E66.9 Obesity, unspecified; I10 Essential (primary) hypertension; Z87.442 Personal history of urinary calculi; Z79.84 Long term (current) use of oral hypoglycemic drugs; Z68.34 Body mass index [BMI] 34.0-34.9, adult; Z79.899 Other long term (current) drug therapy
CPT/HCPCS: 36415; 70450; 70496; 70498; 70551; 71046; 80048; 80053; 80061; 81003; 83036; 84443; 84484; 85025; 85610; 85730; 93005; 93270; 93306; 93880; 99285

== ENCOUNTER 2021-01-31 10:47 | Day surgery (SDC) | payer BC ==
[2021-01-29 12:11] VITALS: BMI 38.4
[~2021-01-31 10:47] MED LIST changes: +ALPRAZolam 0.25 MG TAB PO PRN; +ALPRAZolam 0.5 MG TAB PO PRN; +ASPIRIN 325 MG TAB PO STA; -DEXAMETHASONE SOD PHOSPHATE 10 MG/ML 1 ML VIAL IV ONE; +HEPARIN SODIUM,PORCINE 10,000 UNIT in SODIUM CHLORIDE 0.9% 1,000 ML IRRIGATION PRN; +HEPARIN SODIUM,PORCINE 2,500 UNIT in SODIUM CHLORIDE 0.9% 250 ML IRRIGATION PRN; -HYDROmorphone (PF) 1 MG/ML ONE; -HYDROmorphone 0.5 MG/0.5 ML SYRINGE IVP PRN; -INSULIN ASPART (NovoLOG) 100 UNIT/ML VIAL SQ ONE; -IOHEXOL 350 MG/ML 50 ML in EMPTY BAG 1 BAG IRRIGATION ONE; -LACTATED RINGERS 1,000 ML IV ONE; -LACTATED RINGERS 1,000 ML IV SCH; -LIDOCAINE 1% 20 ML VIAL (10MG/ML) FOR IV START INTRADERMA PRN; -LIDOCAINE 1% INJ 10MG/ML (20 ML MDV) ONE; -MIDAZOLAM 2 MG/2 ML VIAL ONE; +NITROGLYCERIN SL TABS 0.4 MG TAB SUBLINGUAL PRN; -ONDANSETRON 4 MG/2 ML VIAL IVP ONE; -PHENYLEPHRINE-0.9% NACL SYG 1 MG/10 ML SYRINGE ONE; -PROPOFOL 10 MG/ML 20 ML VIAL IV ONE; -SCOPOLAMINE 1.5MG/72HR PATCH TRANSDERM ONE; +SODIUM CHLORIDE 0.9% 1,000 ML in EMPTY BAG 1 BAG IV SCH; -TAMSULOSIN 0.4 MG CAP.ER.24H PO ONE; -TAMSULOSIN 0.4 MG CAP.ER.24H PO STA; -ePHEDrine SULFATE/0.9% NACL/PF 50 MG/5 ML SYRINGE IV ONE; -fentaNYL (PF) 50 MCG/ML 2 ML AMP ONE
[2021-01-31 11:13] LABS: Glucose,Whole Blood 124 mg/dL (75-99)
[2021-01-31 11:27] VITALS: RESP 16; TEMP 98.7
[2021-01-31] MEDS ORDERED: LIDOCAINE 1% INJ 10MG/ML (20 ML MDV) ONE (11:55)
[2021-01-31] MEDS ORDERED: fentaNYL (PF) 50 MCG/ML 2 ML AMP ONE (11:55)
[2021-01-31] MEDS ORDERED: VERAPAMIL 2.5 MG/ML 2 ML AMP ONE (11:55)
[2021-01-31] MEDS ORDERED: LIDOCAINE 1% INJ 10MG/ML (20 ML MDV) SQ ONE (12:08)
[2021-01-31] MEDS ORDERED: fentaNYL (PF) 50 MCG/ML 2 ML AMP IV ONE (12:09)
[2021-01-31] MEDS ORDERED: MIDAZOLAM 2 MG/2 ML VIAL IV ONE (12:09)
[2021-01-31] MEDS ORDERED: VERAPAMIL SYRINGE (5 MG/10 ML) INTRAARTER ONE (12:09)
[2021-01-31] MEDS ORDERED: HEPARIN SODIUM 1,000 UN/ML (10ML VL) ONE (12:10)
[2021-01-31] MEDS ORDERED: HEPARIN SODIUM 1,000 UN/ML (10ML VL) IV ONE (12:11)
[2021-01-31] MEDS ORDERED: IOPAMIDOL-370 125ML BTL INJ ONE (12:44)
[2021-01-31] MEDS ORDERED: IOPAMIDOL-370 100ML BTL INJ ONE (12:45)
[2021-01-31 15:02] VITALS: BP 112/61; PULSE 66
[2021-01-31] MEDS ORDERED: RX INFO: IV CONTRAST WAS GIVEN 1 EACH MISC MISCELLANE PRN (15:41)
--- NOTE | 2021-01-31 15:41 | P.CARDCATH ---
Description of Procedure: PROCEDURES PERFORMED: Left heart catheterization, bilateral coronary angiography INDICATION: Cardiomyopathy HISTORY: Patient is a pleasant 55 year old male with history of CVA and mild cardiomyopathy. He had a decreased EF and mild VALADEZ and heart cathetertization was recommended. CONSENT:I have discussed the risks, benefits and alternative therapies for the above-mentioned procedure and for both sedation/analgesia as well as necessary blood product administration, if indicated, as they pertain to this patient. The patient has indicated understanding and acceptance of the risks and procedures discussed. PROCEDURE: After the risks, benefits and alternatives of the above mentioned procedure explained in detail with the patient, informed consent was obtained. Patient was taken to the catheterization lab and prepped and draped in usual fashion. 1% lidocaine was used to anesthetize the right radial artery. A 6- Swiss sheath was placed in the right radial artery using modified Seldinger technique. Left coronary angiography was somewhat difficult however was performed with a 6-Swiss JL 3.0 catheter and right coronary angiography was performed with a 5-Swiss JR5 catheter in various views. A 5-Swiss FR5 catheter was inserted into the left ventricle and pressure measurements were obtained. The right radial sheath was removed and a TR band was placed with hemostasis achieved. The patient tolerated the procedure well. Patient was transported back to the post catheterization holding area in stable condition. Conscious Sedation: Patient was monitored under the direct supervision of vision of myself for conscious sedation using Versed and fentanyl for a total duration of 36 minutes HEMODYNAMICS: Aortic: 134/70 LV: 143/6, LVEDP 12 SELECTIVE CORONARY ARTERIOGRAPHY: LEFT MAIN: The left main is a large caliber vessel which bifurcates into the LAD and circumflex. There is no significant stenosis. LEFT ANTERIOR DESCENDING CORONARY ARTERY: LAD is a large caliber vessel which becomes a somewhat smaller vessel at the apical LAD. There is no significant stenosis. LEFT CIRCUMFLEX CORONARY ARTERY: Left circumflex is a moderate caliber vessel with no significant stenosis. RIGHT CORONARY ARTERY: The right coronary artery is a very large caliber vessel which is tortuous proximally and gives off a PDA and PLV branch and is the dominant vessel. There is no significant stenosis. FINAL IMPRESSION: 1. Normal coronary arteries as described above. 2. Normal left sided filling pressures PLAN: 1. Aggressive risk factor modification per most recent ACC/AHA guidelines. 2. Follow-up in the office in 1-2 weeks.
== END 2021-01-31 16:30 | disposition home or self-care (01) ==
LOC: CATHCVL 10:47
PROVIDERS: ATTEND Internal Medicine
DX: R06.00 Dyspnea, unspecified (principal); I42.9 Cardiomyopathy, unspecified; I25.10 Atherosclerotic heart disease of native coronary artery without angina pectoris; E11.9 Type 2 diabetes mellitus without complications; E78.5 Hyperlipidemia, unspecified; Z20.822 Contact with and (suspected) exposure to COVID-19; Z86.73 Personal history of transient ischemic attack (TIA), and cerebral infarction without residual deficits; I25.2 Old myocardial infarction; Z79.4 Long term (current) use of insulin; Z79.84 Long term (current) use of oral hypoglycemic drugs; Z79.02 Long term (current) use of antithrombotics/antiplatelets; Z79.82 Long term (current) use of aspirin; Z79.899 Other long term (current) drug therapy
CPT/HCPCS: 93458; 87635; C1769; C1887; C1894; J2250; J2001; J3010; J1644; Q9967 ×2

== ENCOUNTER 2021-06-09 09:35 | Day surgery (SDC) | payer BC ==
[2021-06-06 12:28] VITALS: BMI 33.5
[~2021-06-09 09:35] MED LIST changes: -ALPRAZolam 0.25 MG TAB PO PRN; -ALPRAZolam 0.5 MG TAB PO PRN; -ASPIRIN 325 MG TAB PO STA; -HEPARIN SODIUM,PORCINE 10,000 UNIT in SODIUM CHLORIDE 0.9% 1,000 ML IRRIGATION PRN; -HEPARIN SODIUM,PORCINE 2,500 UNIT in SODIUM CHLORIDE 0.9% 250 ML IRRIGATION PRN; -NITROGLYCERIN SL TABS 0.4 MG TAB SUBLINGUAL PRN; +SODIUM CHLORIDE 0.9% 1,000 ML IV SCH; -SODIUM CHLORIDE 0.9% 1,000 ML in EMPTY BAG 1 BAG IV SCH
[2021-06-09 10:29] VITALS: PULSE 53; TEMP 98.8
[2021-06-09 10:30] LABS: Glucose,Whole Blood 122 mg/dL (75-99)
[2021-06-09] MEDS ORDERED: LIDOCAINE 1% INJ 10MG/ML (20 ML MDV) ONE ×2 (11:43)
[2021-06-09] MEDS ORDERED: MIDAZOLAM 2 MG/2 ML VIAL IV ONE (11:54)
[2021-06-09] MEDS ORDERED: LIDOCAINE 1% INJ 10MG/ML (20 ML MDV) SQ ONE (11:55)
--- NOTE | 2021-06-09 12:11 | P.EPPROC ---
- EP Procedure Note Electrophysiology Procedure Note: Loop monitor implant Primary physicians: Dr. Foreman Operations Intelligence Superintendent: Dr. Brasher Indication: Embolic stroke anterior cerebral artery, risk factors for atrial fibrillation, right to left shunting, PFO, on ELIQUIS and Plavix, implanted for diagnosis of atrial fibrillation Patient was brought to the EP lab in a fasting state. Written informed consent was obtained prior to the procedure. The left pectoral area was prepped and draped per protocol. Intravenous antibiotic was administered preoperatively. A subcutaneous Loop monitor was implanted successfully and the wound was closed per protocol. The device was programmed to detect significant rachael- arrhythmic and tachy-arrhythmic events, per protocol. Device and programming details: A. fib detection Patient underwent EP procedure under conscious sedation/moderate sedation, monitoring of the level of consciousness and physiologic parameters including but not limited to vital signs and oxygenation. Patient tolerated the procedure well without any acute complications. Start time: 1154 Stop time: 1205
--- NOTE | 2021-06-09 12:14 | P.PRLE ---
RE: Allen Cope Dear Taina De La O underwent implantation of a loop monitor to look for sudden episodes of atrial fibrillation since he has multiple risk factors for the. 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
[2021-06-09 13:02] VITALS: BP 121/65; RESP 57
== END 2021-06-09 13:02 | disposition home or self-care (01) ==
LOC: CATHEP 09:35
PROVIDERS: ATTEND Internal Medicine Clinical Cardiac Electrophysiology
DX: I48.91 Unspecified atrial fibrillation (principal); Z86.73 Personal history of transient ischemic attack (TIA), and cerebral infarction without residual deficits; Q21.1 Atrial septal defect; I10 Essential (primary) hypertension; I42.8 Other cardiomyopathies; Z20.822 Contact with and (suspected) exposure to COVID-19; E78.5 Hyperlipidemia, unspecified; E11.9 Type 2 diabetes mellitus without complications; Z79.01 Long term (current) use of anticoagulants; Z79.02 Long term (current) use of antithrombotics/antiplatelets; Z82.49 Family history of ischemic heart disease and other diseases of the circulatory system; Z79.84 Long term (current) use of oral hypoglycemic drugs; Z79.4 Long term (current) use of insulin; Z79.899 Other long term (current) drug therapy
CPT/HCPCS: 33285; 87635; C1764; J2250; J0690; J2001